=== PATIENT | female | born 2000 | race Caucasian/White ===

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

== ENCOUNTER 2022-01-24 12:03 | Emergency (ER) | payer OTHER, SELFPAY ==
--- NOTE | 2022-01-24 12:21 | ED_ITS ---
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 Tetanus is up-to-date. Hepatitis B shots UTD. Source patient is being contacted by brew house supervisor and consent is being obtained. Onset (ago): hour(s) Location: upper extremity Severity: mild Relieving factors: none Exacerbating factors: none Associated symptoms: Reports no associated symptoms Treatments prior to arrival: other (irrigation) Review of Systems General: Reports: 10 or more systems reviewed and unremarkable except in HPI and below PFSH ED PFSH: Medical History Acute appendicitis We will give the patient adult suppository of glycerin Once patient passes gas will advance to full liquid diet and potential discharge home today Assurance and education All questions have been answered and all concerns have been addressed to patient's satisfaction. No pertinent past medical history Social History Smoking and tobacco status: never smoked Female Reproductive History: Date of last menstrual period: 11/02/20 Physical Exam Const: COMMON NORMALS: no acute distress, no limitations, alert and well nourished GENERAL APPEARANCE: cooperative Extremity: COMMON NORMALS: normal to inspection and full ROM GENERAL: Yes normal exam except as noted OTHER: extremity small needle puncture ana to L dorsal hand Neuro: COMMON NORMALS: moves all extremities, no focal motor deficits and no sensory deficits noted SENSORIUM/ORIENTATION: Yes alert Course Vital Signs: Vital signs: Vital Signs Temperature 97.9 F 01/24/22 12:29 Pulse Rate 88 01/24/22 12:29 Respiratory Rate 16 01/24/22 12:29 Blood Pressure 127/83 01/24/22 12:29 Pulse Oximetry 97 01/24/22 12:29 [facility] - General Adult Medical Decision Making Patient will have employee exposure labs drawn. Tetanus is up-to-date. Source patient consent being obtained. Patient will hold off on HIV PEP until these results return. Recommend follow-up with Worker's Comp. as directed. Patient does not need alcohol/drug testing. Needlestick paperwork should have been completed by RN prior to discharge. Discharge Plan Discharge Patient Disposition: Home Clinical Impression: Needle stick injury Condition: Stable Prescriptions: No Action desogestrel-ethinyl estradiol [Isibloom] 0.15-0.03 mg tablet 1 tab PO DAILY 0RF Decadron 6 mg tablet 6 mg PO DAILY Qty: 7 0RF Discharge Orders: Discharge ED (Routine); Ordered 01/24/22 Ordered By: Aurelia Woo Referrals: Brett Elizondo MD [Primary Care Provider] - Activity Restrictions/Additional Instructions: As we discussed please follow-up with Worker's Comp. as instructed. Coding Level of Care Code ED Windows Migration Technician for Buzz Mcneill
[2022-01-24 12:29] VITALS: BP 127/83; PULSE 88; RESP 16; TEMP 36.6; O2SAT 97; BMI 33.3
[2022-01-24 14:05] LABS: Hepatitis B Surface AB 3.6 (11.5-1000); Hepatitis B Surface Antigen Non-Reactive (Nonreactive); Hepatitis C Virus Antibody Non-Reactive (Nonreactive)
[2022-01-24 14:23] LABS: HIV 1 & 2 Antibody Non-Reactive (Non-Reactiv); HIV 1 & 2 Antigen Non-Reactive (Non-Reactiv)
== END 2022-01-24 12:32 | disposition home or self-care (01) ==
PROVIDERS: Emergency Provider Physician Assistant; PCP Family Medicine
DX: S61.432A Puncture wound without foreign body of left hand, initial encounter (principal); W46.1XXA Contact with contaminated hypodermic needle, initial encounter; Y92.239 Unspecified place in hospital as the place of occurrence of the external cause; Y99.0 Civilian activity done for income or pay
CPT/HCPCS: 86706; 86803; 87340; 87806; 99283

== ENCOUNTER 2022-02-15 22:52 | Emergency (ER) | payer OTHER, MEDICAID, SELFPAY ==
--- NOTE | 2022-02-15 22:55 | XRR_ITS ---
PROCEDURE INFORMATION: Exam: XR Chest Exam date and time: 02/15/2022 11:03 PM Age: 21 years old Clinical indication: Cough and shortness of breath; Patient HX: Cough with SOB. ; Additional info: Covid TECHNIQUE: Imaging protocol: Radiologic exam of the chest. Views: 1 view. COMPARISON: CR XR chest 1V portable [id number] 07/30/2021 5:18 AM FINDINGS: Lungs: Unremarkable. No consolidation. Pleural spaces: Unremarkable. No pleural effusion. No pneumothorax. Heart/Mediastinum: Unremarkable. No cardiomegaly. Bones/joints: Unremarkable. XR/XR chest 1V portable [id number] IMPRESSION: No acute findings.
--- NOTE | 2022-02-15 22:55 | ECG_ITS ---
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 Measurements Intervals [place] Rate: 95 P: 39 [place]: 121 QRS: 53 QRSD: 85 T: 18 QT: 337 QTc: 425 Interpretive Statements SINUS RHYTHM WITH SINUS ARRHYTHMIA Compared to ECG 07/30/2021 05:13:47 Short [place] interval no longer present Electronically Signed On 02-16-2022 17:19:42 CDT by Sebastián Austin M.D. [email or web address] [email or web address] medical [email or web address].[email or web address]/[id number]
[2022-02-15 23:03] VITALS: BP 162/89; PULSE 108; RESP 24; TEMP 36.9; O2SAT 98; BMI 33.6
--- NOTE | 2022-02-15 23:07 | ED_ITS ---
HPI - Chest Pain General: Chief Complaint: Chest Pain Stated Complaint: Chest Pain/Cough/Dizzy Time Seen by Provider: 02/15/22 23:01 Source: patient Mode of arrival: ambulatory Limitations: no limitations History of Present Illness: 21-year-old female who states she been having cough congestion over the last 3 days states she seen 2 days ago diagnosed walk pneumonia placed on steroid albuterol along with antibiotic states she has had no improvement states her cough is dry in nature she had some slight dizziness and is having sharp chest pains. Denies any fever she is in no distress here denies any abdominal pain. Associated symptoms: Deny abdominal pain, nausea or vomiting Review of Systems Const: Reports: body aches Eyes: Denies: blurry vision or eye discomfort ENMT: Denies: throat pain or dental pain Card: Reports: chest pain Resp: Reports: non-productive cough GI: Denies: abdominal pain, nausea, vomiting or diarrhea : Denies: dysuria Musc: Denies: neck pain or back pain Skin/Breast: Denies: rash Neuro: Denies: headache(s) Psych: Denies: depression Jax/Lymph: Denies: easy bruising All/Imm: Denies: urticaria PFSH ED PFSH: Medical History Acute appendicitis We will give the patient adult suppository of glycerin Once patient passes gas will advance to full liquid diet and potential discharge home today Assurance and education All questions have been answered and all concerns have been addressed to patient's satisfaction. No pertinent past medical history Social History Smoking and tobacco status: never smoked Female Reproductive History: Date of last menstrual period: 01/25/22 Physical Exam Const: COMMON NORMALS: no acute distress, patient oriented x3 and healthy a ppearing HENMT: COMMON NORMALS: normocephalic and atraumatic HEAD & SCALP: normocephalic and atraumatic Eye: COMMON NORMALS: Equal, round and reactive pupils present and EOMs intact bilaterally PUPIL: Yes Equal, round and reactive pupils present Neck/C-Spine: COMMON NORMALS: full ROM and supple Chest: COMMONS NORMALS: normal inspection of the chest and normal palpation of entire chest wall Resp: COMMON NORMALS: normal respiratory effort, No retractions, No use of accessory muscles and clear to auscultation bilaterally AUSCULTATION: clear to auscultation bilaterally Cardio: COMMON NORMALS: regular rate, regular rhythm and No murmurs present (Cardio) RATE: regular rate RHYTHM: regular rhythm GI: COMMON NORMALS: Normal to inspection, nondistended, normoactive bowel sounds present, Soft to palpation, non-tender and no masses PALPATION: Yes Soft to palpation Extremity: COMMON NORMALS: normal to inspection and full ROM Neuro: COMMON NORMALS: patient oriented x3, moves all extremities and no focal motor deficits Psych: COMMON NORMALS: mental status grossly normal, Normal thought process p resent and cooperative THOUGHT PROCESS: Normal thought process present Skin: COMMON NORMALS: no rashes or lesions noted and no wounds GENERAL SKIN EXAM: no rashes or lesions noted Course Vital Signs: Vital signs: Vital Signs Temperature 98.4 F 02/15/22 23:03 Pulse Rate 97 02/15/22 23:51 Respiratory Rate 17 02/15/22 23:51 Blood Pressure 139/80 02/15/22 23:37 Pulse Oximetry 98 02/15/22 23:51 Oxygen Delivery Me thod 02/15/22 23:51 MDM - Chest Pain Medical Decision Making Patient presents here with COVID likely causing her symptoms she is well- appearing here in no distress she is stable for discharge she is to follow-up with her PCP and return if worsening. Lab Data : 02/15/22 23:22 02/15/22 23:22 Laboratory Results WBC 12.7 10^3/uL (4.5-13.0) 02/15/22 23:22 RBC 4.83 10^6/uL (4.1-5.3) 02/15/22 23:22 Hgb 13.2 g/dL (11.5-15.3) 02/15/22 23:22 Hct 41.8 % (37.0-47.0) 02/15/22 23:22 MCV 86.5 fl (81-99) 02/15/22 23:22 MCH 27.3 pg (28.0-34.0) L 02/15/22 23:22 MCHC 31.6 g/dL (30.0-36.0) 02/15/22 23:22 RDW 13.5 % (12.1-15.1) 02/15/22 23:22 Plt Count 278 10^3/cmm (130-400) 02/15/22 23:22 MPV 11.8 fL (7.4-10.4) H 02/15/22 23:22 Neut % (Auto) 85.3 % 02/15/22 23:22 Lymph % (Auto) 9.4 % 02/15/22 23: Starr % (Auto) 4.7 % 02/15/22 23: Eos % (Auto) 0.0 % 02/15/22 23:22 Baso % (Auto) 0.1 % 02/15/22 23: Neut # (Auto) 10.85 10^3/uL (1.8-8.0) H 02/15/22 23: Lymph # (Auto) 1.2 10^3/uL (1.5-6.5) L 02/15/22 23: Starr # (Auto) 0.6 10^3/uL (0.2-0.9) 02/15/22 23:22 Eos # (Auto) 0.0 10^3/uL (0.0-0.8) 02/15/22 23: Baso # (Auto) 0.0 10^3/uL (0.0-0.1) 02/15/22 23: Nucleated RBC % (auto) 0 % 02/15/22 23: Nucleated RBCs # 0.0 /100WBC 02/15/22 23:22 D-Dimer <= 0.27 ug/mIFEU (0-0.59) 02/15/22 23:22 Sodium 142 mmol/L (136-145) 02/15/22 23:22 Potassium 4.1 mmol/L (3.5-5.1) 02/15/22 23:22 Chloride 106 mmol/L (98-107) 02/15/22 23:22 Carbon Dioxide 23 mmol/L (22-29) 02/15/22 23:22 Anion Gap 17.1 (5-19) 02/15/22 23:22 BUN 15 mg/dL (6-20) 02/15/22 23:22 Creatinine 0.8 mg/dL (0.5-0.9) 02/15/22 23:22 GFR Calculation 92.4 mL/min (90-130) 02/15/22 23:22 Glucose 134 mg/dL (65-115) H 02/15/22 23:22 Calculated Osmolality 297 mOsm/kg (285-295) H 02/15/22 23:22 Calcium 9.2 mg/dL (8.5-10.5) 02/15/22 23:22 Total Bilirubin 0.2 mg/dL (0.15-1.2) 02/15/22 23:22 AST 10 U/L (0-32) 02/15/22 23:22 ALT 12 U/L (0-33) 02/15/22 23:22 Alkaline Phosphatase 58 U/L (35-105) 02/15/22 23:22 Total Protein 7.7 g/dL (6.6-8.7) 02/15/22 23:22 Albumin 3.9 g/dL (3.5-5.2) 02/15/22 23:22 Globulin 3.8 g/dL (1.3-4.6) 02/15/22 23:22 HCG, Qual Negative (Negative) 02/15/22 23:22 SARS-CoV-2 Ag (Rapid) Positive (Negative) H 02/15/22 23:22 EKG Data EKG 1: I personally reviewed and interpreted this EKG as follows: EKG interpretation date: 02/15/22 EKG interpretation time: 23:05 Interpretation: nsr hr [address] or t wave abnormalities qrs 85 qtc 390 Discharge Plan Discharge Patient Disposition: Home Clinical Impression: COVID-19 Condition: Stable Prescriptions: No Action desogestrel-ethinyl estradiol [Isibloom] 0.15-0.03 mg tablet 1 tab PO DAILY albuterol sulfate 90 mcg/actuation HFA aerosol inhaler 2 puff inhalation Q6H PRN doxycycline hyclate 100 mg tablet 100 mg PO BID 10 Days Qty: 20 0RF Decadron 6 mg tablet 6 mg PO DAILY Qty: 7 0RF Discharge Orders: Discharge ED (Routine); Ordered 02/15/22 Ordered By: Mahnaz Dunne Referrals: Brett Elizondo MD [Primary Care Provider] - 1-3 days Discharge Diet: Advance as tolerated Discharge Activity: Resume usual activity Patient Instructions: COVID-19 (Coronavirus Disease 2019) (ED) Coding Level of Care Code ED 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
[2022-02-15 23:28] LABS: Basophils % 0.1 %; Hematocrit 41.8 % (37.0-47.0); Hemoglobin 13.2 g/dL (11.5-15.3); Lymphocytes # 1.2 10^3/uL (1.5-6.5); Lymphocytes % 9.4 %; Mean Corpuscular HGB Conc 31.6 g/dL (30.0-36.0); Mean Corpuscular Hemoglobin 27.3 pg (28.0-34.0); Mean Corpuscular Volume 86.5 fl (81-99); Mean Platelet Volume 11.8 fL (7.4-10.4); Monocytes # 0.6 10^3/uL (0.2-0.9); Monocytes % 4.7 %; Neutrophils # 10.85 10^3/uL (1.8-8.0); Neutrophils % 85.3 %; Nucleated Red Blood Cells % 0 %; Platelet Count 278 10^3/cmm (130-400); Red Blood Count 4.83 10^6/uL (4.1-5.3); Red Cell Distribution Width 13.5 % (12.1-15.1); White Blood Count 12.7 10^3/uL (4.5-13.0)
[2022-02-15 23:37] VITALS: BP 139/80; PULSE 119; RESP 18; O2SAT 97
[2022-02-15] MEDS: sodium chloride 0.9% 1,000 ML 999 ML IV (23:40)
[2022-02-15 23:41] LABS: D Dimer <= 0.27 ug/mIFEU (0-0.59)
[2022-02-15 23:44] LABS: HCG, Serum Qual Negative (Negative)
[2022-02-15 23:46] LABS: Alanine Aminotransferase 12 U/L (0-33); Albumin Level 3.9 g/dL (3.5-5.2); Alkaline Phosphatase 58 U/L (35-105); Anion Gap 17.1 (5-19); Aspartate Amino Transferase 10 U/L (0-32); Blood Urea Nitrogen 15 mg/dL (6-20); Calcium 9.2 mg/dL (8.5-10.5); Carbon Dioxide 23 mmol/L (22-29); Chloride 106 mmol/L (98-107); Globulin 3.8 g/dL (1.3-4.6); Glomerular Filtration Rate 92.4 mL/min (90-130); Glucose 134 mg/dL (65-115); Osmolality Calculated 297 mOsm/kg (285-295); Potassium 4.1 mmol/L (3.5-5.1); Sodium 142 mmol/L (136-145); Total Bilirubin 0.2 mg/dL (0.15-1.2); Total Protein 7.7 g/dL (6.6-8.7)
[2022-02-15 23:48] LABS: SARS Covid-2 Antigen Positive (Negative)
[2022-02-15] MEDS: ipratropium-albuterol 3 mL Neb INHALATION (23:50)
[2022-02-15 23:51] VITALS: PULSE 97; RESP 17; O2SAT 98
[2022-02-16 00:11] VITALS: PULSE 97; RESP 17; O2SAT 98
== END 2022-02-16 00:13 | disposition home or self-care (01) ==
PROVIDERS: Emergency Provider Emergency Medicine; PCP Family Medicine
DX: U07.1 COVID-19 (principal)
CPT/HCPCS: 71045; 80053; 84703; 85025; 85378; 87426; 93005; 94640; 96360; 99284; J7030

== ENCOUNTER → 2022-03-31 11:34 | Outpatient (BNVA) | payer OTHER, MEDICAID, SELFPAY | PROVIDERS: Visit Provider Nurse Practitioner Women's Health | DX: N89.8 Other specified noninflammatory disorders of vagina (principal); N76.0 Acute vaginitis; B96.89 Other specified bacterial agents as the cause of diseases classified elsewhere; Z11.3 Encounter for screening for infections with a predominantly sexual mode of transmission | CPT/HCPCS: 87491; 87591; 87661 ==

== ENCOUNTER 2022-06-01 15:36 | Outpatient (CLI) | payer OTHER, MEDICAID, SELFPAY | END 2022-06-01 15:37 | disposition home or self-care (01) | LOC: SPT 15:37 | PROVIDERS: Visit Provider Student in an Organized Health Care Education/Training Program | DX: Z46.89 Encounter for fitting and adjustment of other specified devices (principal); S83.201D Bucket-handle tear of unspecified meniscus, current injury, left knee, subsequent encounter; X58.XXXD Exposure to other specified factors, subsequent encounter | CPT/HCPCS: 97760; L1832 ==

== ENCOUNTER 2022-06-21 09:08 | Outpatient (CLI) | payer OTHER, MEDICAID, SELFPAY ==
--- NOTE | 2022-06-21 09:30 | MR_ITS ---
WS: [id number] MRI RIGHT KNEE NONCONTRAST TECHNIQUE: Axial PD, coronal PD fat sat, coronal PD, sagittal PD, and sagittal PD fat-sat images obta ined. CLINICAL INFORMATION: knee pain COMPARISON: None. FINDINGS: Distal quadriceps and patella tendons are intact. Normal ACL and PCL. Medial and lateral meniscus are normal in appearance. No acute appearing meniscal tears. Normal medial and lateral collateral ligame nts. Normal popliteus. Normal bone marrow signal in the femoral condyles and tibial plateau. Normal popliteal fossa. Mild ch ondromalacia patella. No subchondral edema. Normal medial and lateral patellar retinaculum. MR/MR knee RT wo con* [id number] IMPRESSION: 1. Normal ACL and PCL. 2. Normal medial and lateral meniscus. No acute meniscal tears. 3. Medial and lateral collateral ligaments are normal in appearance. 4. Mild chondromalacia patella. 5. No other suspicious findings. Outbridge grading: grade II: blister-like swelling/fraying of articular cartila ge extending to surface
== END 2022-06-21 09:09 | disposition home or self-care (01) ==
LOC: RAD 09:09
PROVIDERS: Visit Provider Student in an Organized Health Care Education/Training Program
DX: M22.41 Chondromalacia patellae, right knee (principal)
CPT/HCPCS: 73721

== ENCOUNTER 2022-07-15 12:44 | Emergency (ER) | payer OTHER, MEDICAID, SELFPAY ==
[2022-07-15 12:48] VITALS: BP 147/89; PULSE 91; RESP 16; TEMP 36.1; O2SAT 99
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
[2022-07-15] MEDS: acetaminophen 500 mg Tablet 1000 MG PO (14:30)
[2022-07-15 14:51] VITALS: BP 130/83; PULSE 77; RESP 16; O2SAT 96
== END 2022-07-15 14:53 | disposition home or self-care (01) ==
PROVIDERS: Emergency Provider Physician Assistant
DX: S06.0X0A Concussion without loss of consciousness, initial encounter (principal); Y04.2XXA Assault by strike against or bumped into by another person, initial encounter
CPT/HCPCS: 70450; 99284

== ENCOUNTER 2022-08-30 17:25 | Emergency (ER) | payer OTHER, MEDICAID, SELFPAY ==
[2022-08-30 17:35] VITALS: BP 144/97; PULSE 88; RESP 20; TEMP 36.7; O2SAT 97; BMI 37.8
--- NOTE | 2022-08-30 17:43 | XRR_ITS ---
PROCEDURE INFORMATION: Exam: XR Chest Exam date and time: 08/30/2022 7:05 PM Age: 21 years old Clinical indication: Cough and fever and other: Difficulty breathing chest pressure TECHNIQUE: Imaging protocol: Radiologic exam of the chest. Views: 1 view. COMPARISON: CR XR chest 1V portable [id number] 02/15/2022 11:03 PM FINDINGS: Lungs: Lungs are clear bilaterally. Pleural spaces: No pleural effusion. No pneumothorax. Heart/Mediastinum: The cardiac silhouette and mediastinal contours are unremarkable. Bones/joints: Unremarkable for age. XR/XR chest 1V portable [id number] IMPRESSION: Negative chest radiograph.
[2022-08-30 18:58] VITALS: O2SAT 96
--- NOTE | 2022-08-30 19:06 | ED_ITS ---
HPI - COVID General: Chief Complaint: COVID symptoms Stated Complaint: congestion/cough/fever Time Seen by Provider: 08/30/22 19:06 History of Present Illness: Patient comes in today for complaints of cough and some nasal drainage. On exam patient appears nontoxic. Patient appears in no severe pain. Respirations are even. Patient does report some midsternal chest discomfort with respirations. COVID 19 common symptoms: positive throat pain; negative fever(s), dyspnea, nausea or vomiting COVID 19 other sytmptoms: negative chest pain COVID Results: SARS-CoV-2 Antigen (Rapid) negative (Negative) 08/30/22 19:00 SARS-CoV-2 RNA (RT-PCR) Detected (NOT DETECTED) A 07/16/21 21: 10 Nasal/Oral Coronavirus 2019 PCR Not detected 03/09/21 01:20 Review of Systems Const: Denies: fever(s) ENMT: Reports: throat pain and nasal discharge Card: Denies: chest pain Resp: Denies: dyspnea GI: Denies: nausea or vomiting Skin/Breast: Denies: rash PFSH ED PFSH: Medical History Loose body in knee No pertinent past medical history neghx: htn,dm,thyroid,dvt/pe PCP: Dr. Elizondo Patella-femoral syndrome Tear meniscus knee Surgical History History of placement of ear tubes x2 as a child History of tonsillectomy as a child Hx of appendectomy (~10/2020) Hx of wisdom tooth extraction (~2018) Family History Grandmother Diabetes Paternal Grandfather Diabetes Paternal Mother Hypertension Denies family history of Colon cancer Ovarian cancer Heart disease Hypercholesteremia Breast cancer Uterine cancer Thyroid disease Stroke Social History Smoking and tobacco status: never smoked Physical Exam Const: COMMON NORMALS: alert HENMT: NOSE: Nasal discharge present THROAT: posterior oropharynx abnormal erythema Neck/C-Spine: COMMON NORMALS: full ROM Resp: COMMON NORMALS: normal respiratory effort and clear to auscultation bilaterally AUSCULTATION: clear to auscultation bilaterally Cardio: COMMON NORMALS: regular rate and regular rhythm RATE: regular rate RHYTHM: regular rhythm Back/Pelvis: COMMON NORMALS: thoracic and lumbar spine normal to inspection Extremity: COMMON NORMALS: no pedal edema Neuro: SENSORIUM/ORIENTATION: Yes alert Skin: COMMON NORMALS: turgor normal GENERAL SKIN EXAM: turgor normal Course Vital Signs: Vital signs: Vital Signs Temperature 98.0 F 08/30/22 17:35 Pulse Rate 88 08/30/22 17:35 Respiratory Rate 20 H 08/30/22 17:35 Blood Pressure 144/97 08/30/22 17:35 Pulse Oximetry 96 08/30/22 18:58 Oxygen Delivery Me thod 08/30/22 18:58 MDM - COVID Medical Decision Making 21-year-old female comes in today for complaints of some throat discomfort, nasal discharge, and sternal chest discomfort with deep inspiration. Patient appears nontoxic. Respirations are even lungs are clear to auscultation. No edema is noted in the extremities. Patient moves all extremities well. Some postnasal drainage is noted. Bilateral TMs are clear. Vital signs are normal except for some mild elevation of blood pressure. Differential diagnosis includes but not limited to pneumonia, upper respiratory infection, bronchitis, viral syndrome. Chest x-ray was unremarkable. COVID and influenza test were negative. Believe the patient probably has a mild upper respiratory infection secondary to viral syndrome. Reviewed exam with patient with recommendations for treatment and follow-up. Patient reported understanding and agreed to plan. Lab Data Laboratory Results Influenza Type A Ag negative (Negative) 08/30/22 19:00 Influenza Type B Ag negative (Negative) 08/30/22 19:00 SARS-CoV-2 Ag (Rapid) negative (Negative) 08/30/22 19:00 SARS-CoV-2 Antigen (Rapid) negative (Negative) 08/30/22 19:00 SARS-CoV-2 RNA (RT-PCR) Detected (NOT DETECTED) A 07/16/21 21: 10 Nasal/Oral Coronavirus 2019 PCR Not detected 03/09/21 01:20 Discharge Plan Discharge Patient Disposition: Home Clinical Impression: Upper respiratory infection Qualifiers: URI type: unspecified URI Qualified Code(s): J06.9 - Acute upper respiratory infection, unspecified Condition: Stable Prescriptions: No Action desogestrel-ethinyl estradiol [Isibloom] 0.15-0.03 mg tablet 1 tab PO DAILY metronidazole 500 mg tablet 500 mg PO BID 7 Days Qty: 14 0RF albuterol sulfate 90 mcg/actuation HFA aerosol inhaler 2 puff inhalation Q6H PRN (DME) Jocelyn hinged knee brace See Rx Instructions .Route .MEDSUPPLY Qty: 1 0RF Rx Instructions: As directed Discharge Orders: Discharge ED (Routine); Ordered 08/30/22 Ordered By: Andrew Benitez Referrals: Brett Elizondo MD [Primary Care Provider] - Patient Instructions: Opioid Safety, Pain Management Activity Restrictions/Additional Instructions: Home and rest. Drink plenty of fluids. Use acetaminophen and ibuprofen for pain and discomfort. Activity as tolerated. Follow-up with primary care in 2 to 3 days for recheck. Return to the ER for worsening symptoms such as inc reased shortness of breath, severe chest pain, inability to hold fluids down, or new concerns. Stand Alone Forms: Work/School Release Coding Level of Care Code ED School Psychology Specialist for Buzz Mcneill
[2022-08-30 19:28] LABS: Influenza A by IFA negative (Negative); Influenza B by IFA negative (Negative); SARS Covid-2 Antigen negative (Negative)
== END 2022-08-30 19:56 | disposition home or self-care (01) ==
PROVIDERS: Emergency Medicine; Emergency Provider Nurse Practitioner Family; PCP Family Medicine
DX: J06.9 Acute upper respiratory infection, unspecified (principal)
CPT/HCPCS: 71045; 87426; 87804; 99284

== ENCOUNTER 2022-12-01 15:02 | Outpatient (RCR) | payer OTHER, MEDICAID, SELFPAY | END 2022-12-30 23:59 | disposition home or self-care (01) | LOC: SPT 15:02 | PROVIDERS: Visit Provider Student in an Organized Health Care Education/Training Program | DX: M25.561 Pain in right knee (principal) | CPT/HCPCS: 97032; 97110; 97161 ==

== ENCOUNTER 2022-12-23 09:01 | Outpatient (CLI) | payer OTHER, MEDICAID, SELFPAY ==
--- NOTE | 2022-12-23 09:30 | MR_ITS ---
WS: [id number] MRI RIGHT KNEE HISTORY: pain, pain for one year. COMPARISON: 06/21/2022 Anterior cruciate ligament: Intact. Posterior cruciate ligament: Intact. Medial collateral ligament: Intact. Posterior lateral corner structures: Intact. Medial menisci: There is a very tiny focal defect seen in the junction of the mid body with the poste rior horn. This could represent a very small radial tear. This is seen only on 2 sequential images. N ot definitely seen on the prior study. Lateral meniscus: Intact. Normal signal, size and shape. Extensor mechanism: Distal quadriceps tendon and patellar tendons are intact. Fluid and soft tissue: No joint effusion. No Pickett's cyst. Osseous and articular structures: Patellofemoral compartment: Normal. Medial compartment: Normal. Lateral compartment: Normal. MR/MR knee RT wo con* [id number] IMPRESSION: 1. Very tiny focal defect involving the junction of the body and free edge pos terior medial meniscus. This could potentially represent a very small radial te ar. Seen only on 2 sequential images. 2. Otherwise normal. No chondromalacia identified on today's study.
== END 2022-12-23 09:02 | disposition home or self-care (01) ==
PROVIDERS: Visit Provider Student in an Organized Health Care Education/Training Program
DX: M22.2X1 Patellofemoral disorders, right knee (principal)
CPT/HCPCS: 73721

== ENCOUNTER 2023-01-06 07:11 | Day surgery (SDC) | payer OTHER, MEDICAID, SELFPAY ==
[2023-01-05 08:07] VITALS: BMI 38.4
[2023-01-06] VITALS (21 sets, daily range): BP systolic 102–159; BP diastolic 52–112; PULSE 1–148; RESP 14–44; TEMP 36.2–36.9; O2SAT 93–99
[2023-01-06] MEDS: sodium chloride 0.9% 1,000 ML 30 ML IV (07:39)
[2023-01-06] MEDS: ketorolac 30 mg/mL INJ IVP (07:41)
[2023-01-06] MEDS: acetaminophen 1,000 MG/100 ML PIGGYBACK 400 MG IV (07:41)
--- NOTE | 2023-01-06 08:58 | W.PM.OPSUD ---
Surgery/Procedure H&P Update DATE OF PROCEDURE: January 06, 2023 DATE H&P PERFORMED: 12/26/22 CHANGES TO PREVIOUS DOCUMENTATION: None. No change in HPI from previous office visit on 12/26/2022. Patient understands risk benefits complication alternatives with surgery and elects proceed with right knee diagnostic and surgical arthroscopy with partial medial meniscectomy versus repair. All questions answered. PREOP DIAGNOSIS: right knee medial meniscus tear PRIMARY INDICATION FOR PROCEDURE: Right knee medial meniscus tear PLANNED PROCEDURE: Operation Date: 01/06/23 09:25 Proposed Procedures p Right Knee Diagnostic and Surgical Arthroscopy with Partial Medial Meniscectomy [id number],S83.209A,M22.2X9,M25.561,M23.40(Right) - Cam Rojas DO
[2023-01-06] MEDS: ceFAZolin 2,000 MG in sodium chloride 0.9% (plus) 50 ML 100 MG IV (09:14)
--- NOTE | 2023-01-06 09:33 | ANES.PREANE2 ---
Pre-Anesthetic Assessment Height/Weight: Height 1.63 m Weight 101.605 kg Temp Pulse Resp BP Pulse Ox O2 Del Method 98.5 F 88 16 148/79 97 Room Air 01/06/23 07:34 01/06/23 07:34 01/06/23 07:34 01/06/23 07:34 01/06/23 07:34 01/06/23 07:34 Preop Diagnosis: right knee medial meniscus tear Operation Date: 01/06/23 09:25 Proposed Procedures p Right Knee Diagnostic and Surgical Arthroscopy with Partial Medial Meniscectomy 07814,S83.209A,M22.2X9,M25.561,M23.40(Right) - Cam Rojas DO Familial anesthetic complications: none Was Beta [place] taken within 24 hours: N/A Was Clonidine taken within 24 hours: N/A Last intake: Intake Last Liquid Date 01/05/23 Last Liquid Time 23:00 Last Solid Date 01/05/23 Last Solid Time 18:30 Social No alcohol and No tobacco Exam alert, oriented x 3, clear to auscultation bilaterally and regular rate & rhythm Airway Submandibular: within normal limits Cervical ROM: within normal limits Mallampati: Class II Dentition: full Pulmonary Asthma Metabolic Morbid Obesity Anesthetic Plan ASA status: 2 Anesthesia: General and Regional (specify below) (Right adductor blk) Medications/Allergies Home Medications Medication Instructions Recorded Confirmed Last Taken Type desogestrel 0.15 mg-ethinyl 1 tab PO DAILY 08/10/20 01/05/23 01/06/23 History estradiol 0.03 mg tablet (Isibloom) albuterol sulfate 90 mcg/actuation 2 puff inhalation Q6H PRN Pain 02/14/22 01/05/23 Unknown History aerosol inhaler mecobalamin (vitamin B12) 5,000 mcg PO 09/12/22 12/26/22 01/05/23 History mcg disintegrating tablet acetaminophen 325 mg tablet 325 mg PO QID PRN Pain 01/05/23 01/06/23 01/03/23 History (Tylenol) ibuprofen 800 mg tablet 800 mg PO Q6H PRN Pain 01/05/23 01/05/23 Unknown History Allergies Allergy/AdvReac Type Severity Reaction Status Date / Time tramadol Allergy ADR-Headach Verified 01/06/23 08:12 e Current Medications Generic Name Dose Route Start Last Admin Trade Name Freq PRN Reason Stop Dose Admin Sodium Chloride 1,000 mls @ 30 mls/hr 01/06/23 07:15 01/06/23 07:39 Sodium Chloride 0.9% IV 01/07/23 07:14 30 mls/hr .Q24H LUIS Administration PFSH Anesthesia Medical History Loose body in knee No pertinent past medical history neghx: htn,dm,thyroid,dvt/pe PCP: Dr. Elizondo Patella-femoral syndrome Tear meniscus knee Surgical History History of placement of ear tubes x2 as a child History of tonsillectomy as a child Hx of appendectomy (~10/2020) Hx of wisdom tooth extraction (~2018) Family History Grandmother Diabetes Paternal Grandfather Diabetes Paternal Mother Hypertension Denies family history of Colon cancer Ovarian cancer Heart disease Hypercholesteremia Breast cancer Uterine cancer Thyroid disease Stroke Social History Smoking and tobacco status: never smoked Data Anesthesia Cardiac Studies: No Data to Display
--- NOTE | 2023-01-06 09:43 | ANES.PROC ---
Anesthesia Procedures Procedure/Date: 01/06/23 adductor, genicular nerve blocks Nerve Block ^: Nerve Block 1: Main Anesthesia: general anesthesia Time Out Performed: Yes Consent: requested by attending/covering physician, risks and benefits reviewed and patient agrees to proceed Nerve block location: adductor canal and other (geniculars) Anesthesia monitors applied: pulse oximetry, EKG, BP cuff and oxygen Nerve block position: supine Anesthetic Used: ropivicaine 0.5% Amount of anesthesia used (mL): 30 Ultrasound used to: recognize landmarks and visualize and ID femerol nerve Nerve Stimulator Used?: No Interscalene/Femoral BLK: 4 stimuplex 21 g needle used for position and inplane approach, visualize local anesthetic spread and no vascular puncture identified Injection: neg aspiration of heme Patient Tolerated Procedure: well and no complications Complications: none Additional Comments: ultrasound image on chart
[2023-01-06] MEDS: lidocaine-epi 2% 20 mL INJ INJECTION ×3 (09:44→09:55)
--- NOTE | 2023-01-06 10:02 | PM.OP2 ---
Brief Operative Note Date of procedure: 01/06/23 Pre-op diagnosis: Right knee medial meniscus tear Post-op diagnosis: other (Right knee medial plica and extensive synovitis) Procedure Done: Right knee diagnostic and surgical arthroscopy with medial plica excision Right knee diagnostic and surgical arthroscopy with extensive synovectomy of medial lateral and patellofemoral compartments Surgeon: Cam Rojas Estimated blood loss (mL): 2 Complications: None Post-op Plan: Patient taken to PACU in stable condition recovering well pain controlled. Will receive appropriate discharge instructions as well as pain medication postoperatively. Aspirin for DVT prophylaxis. Follow-up in the orthopedic office in 2 weeks. May weight-bear as tolerated. Encourage knee range of motion. Condition: stable Disposition: same day Coding Level of Care Code Acute Code for Buzz Mcneill
--- NOTE | 2023-01-06 10:04 | PM.PACU ---
PACU note Narrative: Patient taken back in stable condition recovering well pain controlled. Dressing on in place clean dry and intact. Patient able to wiggle toes plantarflex and dorsiflex ankle. Distal pulses are palpable toes warm well perfused. Patient did receive abductor block. Exam: awake Disposition: discharged
--- NOTE | 2023-01-06 10:05 | PM.OP ---
Operative Report Date of procedure: January 06, 2023 Pre-op diagnosis: Preop Diagnosis right knee medial meniscus tear Procedure: Post-op diagnosis: Right knee medial Plica Right knee extensive synovitis Procedure done: Right knee diagnostic and surgical arthroscopy with medial plica excision Right knee diagnostic and surgical arthroscopy with extensive synovectomy of medial lateral and patellofemoral compartments Surgeon: Cam Rojas DO Estimated blood loss: 2mL Tourniquet: No tourniquet was used IV fluids: See anesthesia record Complications: None Findings: See operative report narrative Condition: stable Disposition: same day Brief History: Patient is a 22-year-old female with right knee pain.? Patient has failed conservative treatment who has been worked up for right? knee pain in the outpatient setting. MRI findings consistent with tear of the medial meniscus. talked in the office about treatment options patient would like to proceed with a right knee diagnostic and surgical arthroscopy.? Patient understand the ins and outs of the procedure the risk benefits complication alternatives to treatment options.? Understanding risk of surgery they agree to proceed with surgical intervention.?? Understanding this and patient agree to proceed with surgical intervention all questions answered. Procedure: Patient seen and evaluated in the preoperative holding area.? Consent was reviewed and signed with patient.? Correct extremity was then marked.? Patient seen evaluated Anesthesia Department once cleared for surgery patient was taken back to the operative suite.? Patient was transported onto the OR table in supine position.? All bony prominences well-padded patient was appropriate secured to the bed.? Once appropriately anesthetized a nonsterile tourniquet was applied to the right thigh.? The right lower extremity was then prepped and draped in standard orthopedic fashion.? Final timeout performed.? Patient received appropriate preoperative antibiotics. Patient received local anesthetic of lidocaine with epinephrine into the joint as well as around the portal sites under sterile aseptic technique. No tourniquet was inflated A standard 2 portal vertical incision diagnostic and surgical arthroscopy of the right knee was performed in standard fashion.? Small stab incision made in the inferolateral portal introduced trocar and arthroscope into the suprapatellar pouch.? Suprapatellar pouch was subsequently visualized and found to have significant synovitis but no loose bodies.? Patient had noticeable significant inflamed infrapatellar fat pad and thickening hypertrophic within the patellofemoral compartment.? A significantly inflamed medial plica was noted and the knee range of motion snapping was appreciated. ?The medial gutter was free of loose bodies I then introduced the arthroscope into the medial compartment.? Within the medial compartment I then established my inferior medial working portal utilizing spinal needle outside in technique.? Once established I then visualized our articular cartilage of the medial compartment with a valgus stress.? 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 Next I inspected the meniscus.? With an arthroscopic probe was utilized to visual? all aspects of the meniscus.? Meniscal root was found to be intact.? Meniscus was found to be intact with no tear. Next a introduced the arthroscope to the intercondylar notch.? PCL and ACL were intact. patient had significant thickening of the infrapatellar fat pad spanning into the medial and lateral compartments.? I then performed an extensive synovectomy with the arthroscopic shaver of the patellofemoral medial and lateral compartments as well as the intercondylar notch. Advance the scope into the retrocruciate space and no loose bodies were found. Next I introduced the arthroscope into the lateral compartment the lateral compartment was found to have grade 0 chondromalacia.? Lateral meniscus was found to be intact.? The root was intact.? This completed my work of the lateral compartment and then performed a synovectomy of the lateral compartment.? Next of the arthroscope was placed into the lateral gutter and this was free of loose bodies.? Finally I reintroduced the arthroscope into the patellofemoral compartment.? The patellofemoral was found to have grade 0 chondromalacia of the patellofemoral compartment.? At this point I utilized arthroscopic shaver as well as thermal wand to perform extensive synovectomy of the patellofemoral compartment. At this point time it was determined I suspect patient's pain was all stemming from medial plica given the inflammation and band along the medial femoral condyle. As result utilized arthroscopic shaver and thermal wand to perform medial plica excision to excise this to its entirety patient no longer had any snapping and no residual band was noted. I then switch my portal sites to the medial working portal.? Completed the rest of my synovectomy and the rest of my examination arthroscopy was normal. All fluid was suctioned from the joint.? ?All instruments were withdrawn.? Portal sites were closed with interrupted nylon suture.? portal sites were then covered with with Xeroform 4 x 4's ABD Curlex and Jacobo wrap.? Patient was then subsequently awakened from anesthesia and taken to PACU in stable condition. Disposition: Patient taken to PACU in stable condition recovering well.? Will receive appropriate discharge structure as well as pain medication postoperatively as well as? DVT prophylaxis.we will have patient follow-up with us in the office in 2 weeks.? We will weightbearing as tolerated to the right lower extremity.? Patient understands and agrees with current plan.? All questions answered.
[2023-01-06] MEDS: meperidine 50 mg/mL INJ 12.5 MG IVP (10:19)
[2023-01-06] MEDS: midazolam 1 mg/mL INJ 2 mL 2 MG IVP (10:32)
--- NOTE | 2023-01-06 11:48 | SUR.PHASEI ---
1015 - 1125 Pt began to have jerking movements of all 4 extremeties and moving head from side to side. is able to tell this nurse her name and birthday. Pts verbal response was slow and pushed. Liza DUBOIS to bedside to assess patient. Liza stayed with patient for a period of time ( approx 5 minutes) and then left to get Dr Rangel. Dr Rangel to bedside. Dr Rangel wanted additional 37.5 of Demerol given. Nurse gave the Demerol. Dr Rangel also ordered 0.5 mg Versed. Pt cont to have involuntary movements of all extremities but cont to be able to answer questions slowly. Dr Rangel gave propofol and pt ceased to have to jerking movements. Pt slept for approximately 20 minutes. When pt awake she was alert and oriented x 3. Stated Im ok . Pt smiling and pleasant. Dr Rangel asked pt if she had any recollection of the jerking movements and she reported that she did not. Report given to Dianelys RODRIGUEZ and taken to room 11 in [facility]PS.
--- NOTE | 2023-01-06 13:47 | ANE.PACU2 ---
Inpatient post-anesthesia follow up: Airway intact: Yes Vital signs: Temperature 97.1 F Pulse Rate 84 Respiratory Rate 16 Blood Pressure 126/66 Pulse Oximetry 94 Oxygen Delivery Me thod Room Air Oxygen Flow Rate 3 Fraction of Inspir ed Oxygen Hydration adequate: Yes Nausea and vomiting: No Pain level: 2 Mental status: Baseline Additional Comments: Patient had unusual postop rxn, she exhibited seizure-like (head turning and hand flapping/shaking) activity but was able to follow commands (tachy and HTN as well)--?pseudoseizure, ?central anticholinergic syn. Given Versed--no help, reversal for Versed--no help, droperidol 0.625mg--no help...finally bolused 50mg of Prop and she awoke quickly asking if the surgery went well.
== END 2023-01-06 12:10 | disposition home or self-care (01) ==
PROVIDERS: PCP Family Medicine; Visit Provider Student in an Organized Health Care Education/Training Program
PROC: (CPT 29870; principal; 2023-01-06 09:25)
DX: S83.8X1A Sprain of other specified parts of right knee, initial encounter; X58.XXXA Exposure to other specified factors, initial encounter; M22.2X1 Patellofemoral disorders, right knee; J45.909 Unspecified asthma, uncomplicated; E66.01 Morbid (severe) obesity due to excess calories; Z68.38 Body mass index [BMI] 38.0-38.9, adult
CPT/HCPCS: 29876; J0131; J0690; J1100; J1790; J1885; J2175; J2250; J2405; J2704; J2795; J3010; J7030

== ENCOUNTER 2023-02-09 06:00 | Outpatient (RCR) | payer OTHER, MEDICAID, SELFPAY | END 2023-03-02 23:59 | disposition home or self-care (01) | LOC: SPT 06:00 | PROVIDERS: Visit Provider Student in an Organized Health Care Education/Training Program | DX: Z47.89 Encounter for other orthopedic aftercare (principal) | CPT/HCPCS: 97110; 97140; 97161 ==

== ENCOUNTER 2023-03-03 06:00 | Outpatient (RCR) | payer OTHER, MEDICAID, SELFPAY | END 2023-04-01 23:59 | disposition home or self-care (01) | LOC: SPT 06:00 | PROVIDERS: Visit Provider Student in an Organized Health Care Education/Training Program | DX: Z47.89 Encounter for other orthopedic aftercare (principal) | CPT/HCPCS: 97110 ==

== ENCOUNTER → 2023-04-03 11:01 | Outpatient (BNVA) | payer OTHER, MEDICAID, SELFPAY | PROVIDERS: PCP Family Medicine; Referring Provider Family Medicine; Visit Provider Internal Medicine | DX: E03.8 Other specified hypothyroidism (principal); E06.3 Autoimmune thyroiditis; R63.5 Abnormal weight gain | CPT/HCPCS: 36415; 84439; 84443 ==

== ENCOUNTER 2023-06-13 15:57 | Outpatient (CLI) | payer OTHER, MEDICAID, SELFPAY ==
[2023-06-13 17:53] LABS: Free T4 Free Thyroxine 1.24 ng/dL (0.82-1.77)
== END 2023-06-13 15:58 | disposition home or self-care (01) ==
LOC: LAB 15:58
PROVIDERS: PCP Family Medicine; Visit Provider Internal Medicine
DX: E06.3 Autoimmune thyroiditis (principal); E03.8 Other specified hypothyroidism
CPT/HCPCS: 36415; 84439; 84443

== ENCOUNTER 2023-08-29 03:15 | Emergency (ER) | payer OTHER, MEDICAID, SELFPAY ==
[2023-08-29 03:20] VITALS: BP 143/94; PULSE 100; RESP 16; TEMP 36.8; O2SAT 98; BMI 34.3
--- NOTE | 2023-08-29 03:25 | XRR_ITS ---
PROCEDURE INFORMATION: Exam: XR Chest Exam date and time: 08/29/2023 3:31 AM Age: 22 years old Clinical indication: Chest pressure; Patient HX: C/O chest pain TECHNIQUE: Imaging protocol: Radiologic exam of the chest. Views: 1 view. COMPARISON: CR XR chest 2V* [id number] 03/14/2023 9:01 AM FINDINGS: Lungs: Unremarkable. No consolidation. Pleural spaces: Unremarkable. No pleural effusion. No pneumothorax. Heart/Mediastinum: Unremarkable. No cardiomegaly. Bones/joints: Unremarkable. XR/XR chest 1V portable [id number] IMPRESSION: No acute findings.
--- NOTE | 2023-08-29 03:26 | ECG_ITS ---
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 Measurements Intervals [place] Rate: 100 P: 45 RI: 118 QRS: 57 QRSD: 98 T: 22 QT: 341 QTc: 440 Interpretive Statements SINUS TACHYCARDIA WITH SHORT RI INTERVAL Compared to ECG 02/15/2022 23:05:46 Short RI interval now present Sinus rhythm no longer present Sinus arrhythmia no longer present Electronically Signed On 08-29-2023 7:51:51 [employer] by Sebastián Austin M.D. [email or web address]
--- NOTE | 2023-08-29 03:32 | ED_ITS ---
Documented by User: Mendez Thorpe DO 08/29/23 03:36 HPI - Chest Pain 2 General: Chief Complaint: Chest Pain Stated Complaint: N/V, Fall Time Seen by Provider: 08/29/23 03:21 History of Present Illness: Patient presents to the ER via wheelchair from the ICU. Patient was making her rounds to the ICU when she had a near syncopal episode. She states she sat down when she felt weird and started having some chest pain. Patient has had this pain off and on for the last several days. Even before that she has had it before and she had an inhaler that seemed to help. Patient did use her inhaler this time but it did not seem to help. Patient said the chest pain is midsternally and does not radiate. Patient denied any nausea vomiting, did get short of breath, denies diaphoresis. Denies any overt sickness. Review of Systems 2 General: Reports: 10 or more systems reviewed and unremarkable except in HPI and below PFSH ED 2 PFSH: Medical History Patella-femoral syndrome Loose body in knee Tear meniscus knee No pertinent past medical history neghx: htn,dm,thyroid,dvt/pe PCP: Dr. Elizondo Surgical History Hx of wisdom tooth extraction (~2018) History of tonsillectomy as a child History of placement of ear tubes x2 as a child Hx of appendectomy (~10/2020) Family History Grandmother Diabetes Paternal Grandfather Diabetes Paternal Mother Hypertension Denies family history of Colon cancer Ovarian cancer Heart disease Hypercholesteremia Breast cancer Uterine cancer Thyroid disease Stroke Social History Smoking and tobacco/nicotine status: never used tobacco/nicotine Alcohol intake: never Female Reproductive History: Date of last menstrual period: 07/29/23 Physical Exam 2 Const: COMMON NORMALS: no acute distress, average body habitus, patient oriented x3, no limitations, healthy appearing, alert and well nourished HENMT: COMMON NORMALS: normocephalic, atraumatic, hearing grossly normal bilaterally, external ears normal, EAC's normal, Normal external nose present, moist oral mucous membranes and oropharynx normal HEAD & SCALP: normocephalic and atraumatic NOSE: Normal external nose present EXTERNAL EAR: Yes external ears normal EXTERNAL AUDITORY CANAL: EAC's normal Neck/C-Spine: COMMON NORMALS: no JVD Chest: COMMONS NORMALS: normal inspection of the chest and normal palpation of entire chest wall Resp: COMMON NORMALS: normal respiratory effort, No retractions, No use of accessory muscles and clear to auscultation bilaterally AUSCULTATION: clear to auscultation bilaterally Cardio: COMMON NORMALS: no JVD, regular rate, regular rhythm, S1 normal heart sound present, S2 normal heart sound present, No gallops present (Cardio), No clicks present (Cardio), No murmurs present (Cardio) and No rub (Cardio) R ATE: regular rate RHYTHM: regular rhythm HEART SOUNDS: S1 normal heart sound present and S2 normal heart sound present GI: COMMON NORMALS: Normal to inspection, nondistended, normoactive bowel sounds present, Soft to palpation, non-tender, No hepatosplenomegaly present and no masses PALPATION: Yes Soft to palpation and Yes No hepatosplenomegaly present Neuro: COMMON NORMALS: patient oriented x3 SENSORIUM/ORIENTATION: Yes alert Course 2 Vital Signs: Vital signs: Vital Signs Temperature 98.2 F 08/29/23 03:20 Pulse Rate 87 08/29/23 06:06 Respiratory Rate 16 08/29/23 06:06 Blood Pressure 129/88 08/29/23 06:06 Pulse Oximetry 96 08/29/23 06:06 Oxygen Delivery Me thod Room Air 08/29/23 06:06 MDM - Chest Pain Differential Diagnosis Unlikely acute massive pulmonary embolism, acute respiratory failure, acute myocardial infarction, cardiac arrest or sudden cardiac Medical Records I reviewed the patient's medical records. Lab Data I reviewed the patient's lab results. 08/29/23 03:28 08/29/23 03:28 Radiology Impressions Chest X-Ray 08/29/23 03:25 IMPRESSION: No acute findings. Laboratory Results WBC 9.72 10^3/uL (4.5-13.0) 08/29/23 03:28 RBC 5.35 10^6/uL (3.85-5.65) 08/29/23 03:28 Hgb 13.00 g/dL (12.4-14.8) 08/29/23 03:28 Hct 42.5 % (36-47) 08/29/23 03: MCV 79.4 fl (85-98) L 08/29/23 03:28 MCH 24.3 pg (27-33) L 08/29/23 03: MCHC 30.6 g/dL (30-55) 08/29/23 03:28 RDW 15.8 % (12.1-15.1) H 08/29/23 03:28 Plt Count 304 10^3/cmm (157-399) 08/29/23 03:28 MPV 10.8 fL (7.4-10.4) H 08/29/23 03:28 Neut % (Auto) 70.4 % 08/29/23 03: Lymph % (Auto) 20.0 % 08/29/23 03:28 [place] % (Auto) 6.0 % 08/29/23 03:28 Eos % (Auto) 2.8 % 08/29/23 03:28 Baso % (Auto) 0.6 % 08/29/23 03:28 Neut # (Auto) 6.85 10^3/uL (1.8-8.0) 08/29/23 03: Lymph # (Auto) 1.9 10^3/uL (1.5-6.5) 08/29/23 03:28 [place] # (Auto) 0.6 10^3/uL (0.2-0.9) 08/29/23 03:28 Eos # (Auto) 0.3 10^3/uL (0.0-0.8) 08/29/23 03:28 Baso # (Auto) 0.1 10^3/uL (0.0-0.1) 08/29/23 03:28 Nucleated RBC % (auto) 0 % 08/29/23 03: Nucleated RBCs # 0.0 /100WBC 08/29/23 03:28 Sodium 140 mmol/L (136-145) 08/29/23 03:28 Potassium 4.2 mmol/L (3.5-5.1) 08/29/23 03:28 Chloride 104 mmol/L (98-107) 08/29/23 03:28 Carbon Dioxide 23 mmol/L (22-29) 08/29/23 03:28 Anion Gap 17.2 (5-19) 08/29/23 03:28 BUN 10 mg/dL (6-20) 08/29/23 03:28 Creatinine 0.9 mg/dL (0.5-0.9) 08/29/23 03:28 GFR Calculation 79.8 mL/min (90-130) L 08/29/23 03:28 Glucose 114 mg/dL (65-115) 08/29/23 03:28 Calculated Osmolality 290 mOsm/kg (285-295) 08/29/23 03:28 Calcium 8.9 mg/dL (8.5-10.5) 08/29/23 03:28 Total Bilirubin 0.2 mg/dL (0.15-1.2) 08/29/23 03:28 AST 13 U/L (0-32) 08/29/23 03:28 ALT 15 U/L (0-33) 08/29/23 03:28 Alkaline Phosphatase 79 U/L (35-105) 08/29/23 03:28 Troponin T Baseline < 6 ng/L (0-10) 08/29/23 03:28 Troponin T 120 Minute 6.00 ng/L (0-10) 08/29/23 05:46 Delta Troponin T 0.30847 ABS# (0-10) 08/29/23 05:46 Total Protein 7.7 g/dL (6.6-8.7) 08/29/23 03:28 Albumin 4.0 g/dL (3.5-5.2) 08/29/23 03:28 Globulin 3.7 g/dL (1.3-4.6) 08/29/23 03:28 TSH 5.38 uIU/mL (0.27-4.20) H 08/29/23 03:28 Urine Color Light yellow (Yellow) 08/29/23 04:51 Urine Appearance Hazy (CLEAR) A 08/29/23 04:51 Urine pH 6 (5-7) 08/29/23 04:51 Ur Specific Hines 1.010 (1.005-1.030) 08/29/23 04:51 Urine Protein Neg (Negative) 08/29/23 04:51 Urine Glucose (UA) Norm (Normal) 08/29/23 04:51 Urine Ketones Negative (Negative) 08/29/23 04:51 Urine Blood Neg (Negative) 08/29/23 04:51 Urine Nitrate Negative (Negative) 08/29/23 04:51 Urine Bilirubin Neg (Negative) 08/29/23 04:51 Urine Urobilinogen Neg mg/dL (Negative) 08/29/23 04:51 Ur Leukocyte Esterase 2+ (Negative) H 08/29/23 04:51 Urine RBC None /hpf (0-2) 08/29/23 04:51 Urine WBC 15-25 /hpf (0-5) H 08/29/23 04:51 Ur Squamous Epith Cells 10-15 /hpf (0-5) H 08/29/23 04:51 Amorphous Sediment Not Reportable 08/29/23 04:51 Urine Bacteria 1+ /hpf (NONE) H 08/29/23 04:51 All radiology interpretation(s) finalized by discharge EKG Data EKG 1: I personally reviewed and interpreted this EKG as follows: EKG interpretation date: 08/29/23 EKG interpretation time: 03:30 Prior EKG tracings: not available for review Interpretation: Ventricular rate 100 bpm, GA interval 118, QRS duration 98, QTc of 398, sinus tachycardia with short GA interval Discharge Plan Discharge Patient Disposition: Home Clinical Impression: Near syncope, Elevated blood pressure reading Condition: Stable Prescriptions: No Action desogestrel-ethinyl estradiol [Isibloom] 0.15-0.03 mg tablet 1 tab PO DAILY mecobalamin (vitamin B12) 5,000 mcg tablet,disintegrating PO albuterol sulfate 90 mcg/actuation HFA aerosol inhaler 2 puff inhalation Q6H PRN (Reason: Pain) levothyroxine 100 mcg tablet 100 mcg PO DAILY Qty: 60 0RF acetaminophen [Tylenol] 325 mg Tablet 325 mg PO QID PRN (Reason: Pain) ibuprofen 800 mg Tablet 800 mg PO Q6H PRN (Reason: Pain) Hold Instructions: Resume on 01/20/23. Hold until postop visit Discharge Orders: Discharge ED (Routine); Ordered 08/29/23 Ordered By: Rocky Mckinnon Referrals: Brett Elizondo MD [Primary Care Provider] - Discharge Diet: Usual diet Discharge Activity: Increase activity as tolerated Patient Instructions: Opioid Safety, Pain Management Activity Restrictions/Additional Instructions: Thank you for choosing [facility] for your healthcare needs today. Please realize this is an emergency room and that we are providing you with a medical screening exam and this may not be complete and all inclusive of all the testing and or work up that you may need to determine your ailment or severity of your illness. It is very important that you follow up as instructed or that you return to the Emergency Department should you have concerns or if your condition changes or worsens in any way. You were seen today for near syncopal episode. Your heart enzymes and EKGs did not show any clinically significant abnormalities. Recommend that you have a 48-hour Holter monitor, welfare case worker will make arrangements for this. Follow-up with your primary care doctor to reevaluate after the 48-hour Holter monitor and evaluate your blood pressure. Your blood pressure was mildly elevated while in the emergency room. Your primary care doctor will determine if any treatment needs to be started based on outpatient monitoring. Stand Alone Forms: Work/School Release Coding Level of Care Code ED Gear Hobber for Chg Fwd Documented by User: Rocky Mckinnon DO 08/29/23 07:02 HPI - Chest Pain 2 General: Chief Complaint: Chest Pain Stated Complaint: N/V, Fall Time Seen by Provider: 08/29/23 03:21 [facility] ED 2 PFSH: Medical History Patella-femoral syndrome Loose body in knee Tear meniscus knee No pertinent past medical history neghx: htn,dm,thyroid,dvt/pe PCP: Dr. Elizondo Surgical History Hx of wisdom tooth extraction (~2018) History of tonsillectomy as a child History of placement of ear tubes x2 as a child Hx of appendectomy (~10/2020) Family History Grandmother Diabetes Paternal Grandfather Diabetes Paternal Mother Hypertension Denies family history of Colon cancer Ovarian cancer Heart disease Hypercholesteremia Breast cancer Uterine cancer Thyroid disease Stroke Social History Smoking and tobacco/nicotine status: never used tobacco/nicotine Alcohol intake: never Course 2 Vital Signs: Vital signs: Vital Signs Temperature 98.2 F 08/29/23 03:20 Pulse Rate 87 08/29/23 06:06 Respiratory Rate 16 08/29/23 06:06 Blood Pressure 129/88 08/29/23 06:06 Pulse Oximetry 96 08/29/23 06:06 Oxygen Delivery Me thod Room Air 08/29/23 06:06 MDM - Chest Pain Medical Decision Making Assumed care at change of shift cardiac enzymes negative. EKG does not show any acute changes patient is not had any recurrence of symptoms blood pressure mildly elevated. Does not recommend treating blood pressure at this time but should be followed up with her primary care as an outpatient. Will discharge home set up 48-hour Holter monitor. Medical Records I reviewed the patient's medical records. Lab Data I reviewed the patient's lab results. 08/29/23 03:28 08/29/23 03:28 Radiology Impressions Chest X-Ray 08/29/23 03:25 IMPRESSION: No acute findings. Laboratory Results WBC 9.72 10^3/uL (4.5-13.0) 08/29/23 03:28 RBC 5.35 10^6/uL (3.85-5.65) 08/29/23 03:28 Hgb 13.00 g/dL (12.4-14.8) 08/29/23 03:28 Hct 42.5 % (36-47) 08/29/23 03:28 MCV 79.4 fl (85-98) L 08/29/23 03:28 MCH 24.3 pg (27-33) L 08/29/23 03:28 MCHC 30.6 g/dL (30-55) 08/29/23 03:28 RDW 15.8 % (12.1-15.1) H 08/29/23 03:28 Plt Count 304 10^3/cmm (157-399) 08/29/23 03:28 MPV 10.8 fL (7.4-10.4) H 08/29/23 03:28 Neut % (Auto) 70.4 % 08/29/23 03:28 Lymph % (Auto) 20.0 % 08/29/23 03:28 [place] % (Auto) 6.0 % 08/29/23 03:28 Eos % (Auto) 2.8 % 08/29/23 03:28 Baso % (Auto) 0.6 % 08/29/23 03:28 Neut # (Auto) 6.85 10^3/uL (1.8-8.0) 08/29/23 03:28 Lymph # (Auto) 1.9 10^3/uL (1.5-6.5) 08/29/23 03:28 [place] # (Auto) 0.6 10^3/uL (0.2-0.9) 08/29/23 03:28 Eos # (Auto) 0.3 10^3/uL (0.0-0.8) 08/29/23 03:28 Baso # (Auto) 0.1 10^3/uL (0.0-0.1) 08/29/23 03:28 Nucleated RBC % (auto) 0 % 08/29/23 03: Nucleated RBCs # 0.0 /100WBC 08/29/23 03:28 Sodium 140 mmol/L (136-145) 08/29/23 03:28 Potassium 4.2 mmol/L (3.5-5.1) 08/29/23 03:28 Chloride 104 mmol/L (98-107) 08/29/23 03:28 Carbon Dioxide 23 mmol/L (22-29) 08/29/23 03:28 Anion Gap 17.2 (5-19) 08/29/23 03:28 BUN 10 mg/dL (6-20) 08/29/23 03:28 Creatinine 0.9 mg/dL (0.5-0.9) 08/29/23 03:28 GFR Calculation 79.8 mL/min (90-130) L 08/29/23 03:28 Glucose 114 mg/dL (65-115) 08/29/23 03:28 Calculated Osmolality 290 mOsm/kg (285-295) 08/29/23 03:28 Calcium 8.9 mg/dL (8.5-10.5) 08/29/23 03:28 Total Bilirubin 0.2 mg/dL (0.15-1.2) 08/29/23 03:28 AST 13 U/L (0-32) 08/29/23 03:28 ALT 15 U/L (0-33) 08/29/23 03:28 Alkaline Phosphatase 79 U/L (35-105) 08/29/23 03:28 Troponin T Baseline < 6 ng/L (0-10) 08/29/23 03:28 Troponin T 120 Minute 6.00 ng/L (0-10) 08/29/23 05:46 Delta Troponin T 0.31286 ABS# (0-10) 08/29/23 05:46 Total Protein 7.7 g/dL (6.6-8.7) 08/29/23 03:28 Albumin 4.0 g/dL (3.5-5.2) 08/29/23 03:28 Globulin 3.7 g/dL (1.3-4.6) 08/29/23 03:28 TSH 5.38 uIU/mL (0.27-4.20) H 08/29/23 03:28 Urine Color Light yellow (Yellow) 08/29/23 04:51 Urine Appearance Hazy (CLEAR) A 08/29/23 04:51 Urine pH 6 (5-7) 08/29/23 04:51 Ur Specific Hines 1.010 (1.005-1.030) 08/29/23 04:51 Urine Protein Neg (Negative) 08/29/23 04:51 Urine Glucose (UA) Norm (Normal) 08/29/23 04:51 Urine Ketones Negative (Negative) 08/29/23 04:51 Urine Blood Neg (Negative) 08/29/23 04:51 Urine Nitrate Negative (Negative) 08/29/23 04:51 Urine Bilirubin Neg (Negative) 08/29/23 04:51 Urine Urobilinogen Neg mg/dL (Negative) 08/29/23 04:51 Ur Leukocyte Esterase 2+ (Negative) H 08/29/23 04:51 Urine RBC None /hpf (0-2) 08/29/23 04:51 Urine WBC 15-25 /hpf (0-5) H 08/29/23 04:51 Ur Squamous Epith Cells 10-15 /hpf (0-5) H 08/29/23 04:51 Amorphous Sediment Not Reportable 08/29/23 04:51 Urine Bacteria 1+ /hpf (NONE) H 08/29/23 04:51 Discharge Plan Discharge Patient Disposition: Home Clinical Impression: Near syncope, Elevated blood pressure reading Condition: Stable Prescriptions: No Action desogestrel-ethinyl estradiol [Isibloom] 0.15-0.03 mg tablet 1 tab PO DAILY mecobalamin (vitamin B12) 5,000 mcg tablet,disintegrating PO albuterol sulfate 90 mcg/actuation HFA aerosol inhaler 2 puff inhalation Q6H PRN (Reason: Pain) levothyroxine 100 mcg tablet 100 mcg PO DAILY Qty: 60 0RF acetaminophen [Tylenol] 325 mg Tablet 325 mg PO QID PRN (Reason: Pain) ibuprofen 800 mg Tablet 800 mg PO Q6H PRN (Reason: Pain) Hold Instructions: Resume on 01/20/23. Hold until postop visit Discharge Orders: Discharge ED (Routine); Ordered 08/29/23 Ordered By: Rocky Mckinnon Referrals: Brett Elizondo MD [Primary Care Provider] - Discharge Diet: Usual diet Discharge Activity: Increase activity as tolerated Patient Instructions: Opioid Safety, Pain Management Activity Restrictions/Additional Instructions: Thank you for choosing [facility] for your healthcare needs today. Please realize this is an emergency room and that we are providing you with a medical screening exam and this may not be complete and all inclusive of all the testing and or work up that you may need to determine your ailment or severity of your illness. It is very important that you follow up as instructed or that you return to the Emergency Department should you have concerns or if your condition changes or worsens in any way. You were seen today for near syncopal episode. Your heart enzymes and EKGs did not show any clinically significant abnormalities. Recommend that you have a 48-hour Holter monitor, welfare case worker will make arrangements for this. Follow-up with your primary care doctor to reevaluate after the 48-hour Holter monitor and evaluate your blood pressure. Your blood pressure was mildly elevated while in the emergency room. Your primary care doctor will determine if any treatment needs to be started based on outpatient monitoring. Stand Alone Forms: Work/School Release Coding Level of Care Code ED Gear Hobber for Buzz Mcneill
[2023-08-29 03:35] LABS: Basophils # 0.1 10^3/uL (0.0-0.1); Basophils % 0.6 %; Eosinophils # 0.3 10^3/uL (0.0-0.8); Eosinophils % 2.8 %; Hematocrit 42.5 % (36-47); Lymphocytes # 1.9 10^3/uL (1.5-6.5); Mean Corpuscular HGB Conc 30.6 g/dL (30-55); Mean Corpuscular Hemoglobin 24.3 pg (27-33); Mean Corpuscular Volume 79.4 fl (85-98); Mean Platelet Volume 10.8 fL (7.4-10.4); Monocytes # 0.6 10^3/uL (0.2-0.9); Neutrophils # 6.85 10^3/uL (1.8-8.0); Neutrophils % 70.4 %; Nucleated Red Blood Cells % 0 %; Platelet Count 304 10^3/cmm (157-399); Red Blood Count 5.35 10^6/uL (3.85-5.65); Red Cell Distribution Width 15.8 % (12.1-15.1); White Blood Count 9.72 10^3/uL (4.5-13.0)
[2023-08-29 03:52] VITALS: BP 167/90; PULSE 101; RESP 16; O2SAT 96
[2023-08-29 03:58] LABS: Troponin(5th) Baseline < 6 ng/L (0-10)
[2023-08-29 04:07] LABS: Alanine Aminotransferase 15 U/L (0-33); Alkaline Phosphatase 79 U/L (35-105); Anion Gap 17.2 (5-19); Aspartate Amino Transferase 13 U/L (0-32); Blood Urea Nitrogen 10 mg/dL (6-20); Calcium 8.9 mg/dL (8.5-10.5); Carbon Dioxide 23 mmol/L (22-29); Chloride 104 mmol/L (98-107); Creatinine Clr Calc Pharmacy 108.7799; Globulin 3.7 g/dL (1.3-4.6); Glomerular Filtration Rate 79.8 mL/min (90-130); Glucose 114 mg/dL (65-115); Osmolality Calculated 290 mOsm/kg (285-295); Potassium 4.2 mmol/L (3.5-5.1); Sodium 140 mmol/L (136-145); Thyroid Stimulating Hormone 5.38 uIU/mL (0.27-4.20); Total Bilirubin 0.2 mg/dL (0.15-1.2); Total Protein 7.7 g/dL (6.6-8.7)
[2023-08-29 04:49] VITALS: BP 148/93; PULSE 90; RESP 16; O2SAT 98
[2023-08-29 05:04] LABS: Add Urine Microscopic? YES; Bilirubin Urine Neg (Negative); Blood Urine Neg (Negative); Glucose Urine UA Norm (Normal); Ketones Urine Negative (Negative); Leukocyte Esterase Urine 2+ (Negative); Nitrate Urine Negative (Negative); Protein Urine Neg (Negative); Urine Appearance Hazy (CLEAR); Urine Color Light yellow (Yellow); Urobilinogen Urine Neg (Negative); pH Urine 6 (5-7)
[2023-08-29 05:05] LABS: Add Urine Culture? No; Bacteria Urine 1+ /hpf; WBC Urine 15-25 /hpf (0-5)
[2023-08-29 06:06] VITALS: BP 129/88; PULSE 87; RESP 16; O2SAT 96
[2023-08-29] MEDS: acetaminophen 325 mg Tablet 650 MG PO (06:11)
[2023-08-29 06:14] LABS: Troponin 5 2HR Delta 0.00001 ABS# (0-10)
--- NOTE | 2023-08-30 11:52 | DCPLANNER ---
Message sent to cardiology for 48 hr holter monitor.
== END 2023-08-29 07:11 | disposition home or self-care (01) ==
PROVIDERS: Emergency Medicine; Emergency Provider Family Medicine; PCP Family Medicine
DX: R55 Syncope and collapse (principal); R03.0 Elevated blood-pressure reading, without diagnosis of hypertension
CPT/HCPCS: 36415; 71045; 80053; 81001; 84443; 84484; 85025; 93005; 99285

== ENCOUNTER → 2023-10-15 14:37 | Outpatient (BNVA) | payer OTHER, MEDICAID, SELFPAY | PROVIDERS: PCP Family Medicine; Visit Provider Physician Assistant | DX: S99.921A Unspecified injury of right foot, initial encounter (principal); W19.XXXA Unspecified fall, initial encounter | CPT/HCPCS: 73630 ==

== ENCOUNTER → 2024-05-21 15:20 | Outpatient (BNVA) | payer OTHER, SELFPAY | PROVIDERS: PCP Family Medicine; Visit Provider Student in an Organized Health Care Education/Training Program | DX: M25.561 Pain in right knee (principal); M25.562 Pain in left knee; Z98.890 Other specified postprocedural states; M22.2X1 Patellofemoral disorders, right knee; M22.2X2 Patellofemoral disorders, left knee | CPT/HCPCS: 73560; 73565 ==

== ENCOUNTER 2024-06-05 06:00 | Outpatient (RCR) | payer OTHER, SELFPAY | END 2024-07-02 23:59 | disposition home or self-care (01) | LOC: SPT 06:00 | PROVIDERS: PCP Family Medicine; Visit Provider Student in an Organized Health Care Education/Training Program | DX: M25.561 Pain in right knee (principal); M25.562 Pain in left knee | CPT/HCPCS: 97110; 97161 ==

== ENCOUNTER 2024-06-28 12:52 | Emergency (ER) | payer OTHER, SELFPAY ==
--- NOTE | 2024-06-28 13:03 | ECG_ITS ---
[facility] Date: 2024-06-28 Pat Name: Casie Fagan Department: Room: Gender: Female Welfare Service Aide: : 2000 Requested By: Mahnaz Dunne Order Number: [id number] Rowena MD: Sebastián Austin M.D. Measurements Intervals [place] Rate: 89 P: 38 IA: 132 QRS: 48 QRSD: 104 T: 15 QT: 351 QTc: 428 Interpretive Statements SINUS RHYTHM INCOMPLETE RIGHT BUNDLE BRANCH BLOCK [90+ ms QRS DURATION, TERMINAL R IN V1/V2, 40+ ms S IN I/aVL/V4/V5/V6] NONSPECIFIC T-WAVE ABNORMALITY Compared to ECG 08/29/2023 03:30:38 Incomplete right bundle-branch block now present T-wave abnormality now present Sinus tachycardia no longer present Short IA interval no longer present Electronically Signed On 06-28-2024 18:29:02 [employer] by Sebastián Austin M.D. [email or web address]
--- NOTE | 2024-06-28 13:03 | XRR_ITS ---
PROCEDURE INFORMATION: Exam: XR Chest Exam date and time: 06/28/2024 1:12 PM Age: 23 years old Clinical indication: Pain; Chest pressure; Additional info: Cp TECHNIQUE: Imaging protocol: Radiologic exam of the chest. Views: 1 view. COMPARISON: CR XR chest 1V portable [id number] 08/29/2023 3:31 AM FINDINGS: Lungs: Unremarkable. No consolidation. Pleural spaces: Unremarkable. No pleural effusion. No pneumothorax. Heart/Mediastinum: Unremarkable. No cardiomegaly. Bones/joints: Unremarkable. XR/XR chest 1V portable [id number] IMPRESSION: No acute findings.
[2024-06-28 13:04] VITALS: BP 150/95; PULSE 84; RESP 16; TEMP 36.8; O2SAT 99; BMI 41.1
--- NOTE | 2024-06-28 13:20 | W.ED.CHESTPA ---
HPI - Chest Pain General: Chief Complaint: Chest Pain Stated Complaint: chest pain Time Seen by Provider: 06/28/24 13:12 History of Present Illness: 23-year-old female presents emergency room complaining of chest pain complaining of shortness of breath pain with inspiration no productive cough. No fevers. No vomiting no diarrhea nonproductive cough pain worse with deep inspiration Associated symptoms: Deny abdominal pain, dyspnea or fever(s) Related Data Home Medications Medication Instructions Recorded Confirmed albuterol sulfate 90 mcg/actuation 2 puff inhalation Q6H PRN Pain 02/14/22 06/28/24 aerosol inhaler acetaminophen 325 mg tablet 325 mg PO QID PRN Pain 01/05/23 06/28/24 (Tylenol) ferrous fumarate 324 mg (106 mg 324 mg PO DAILY 05/21/24 06/28/24 iron) tablet desogestrel 0.15 mg-ethinyl 1 tab PO QAM 06/28/24 06/28/24 estradiol 0.03 mg tablet (Isibloom) Previous Rx's Medication Instructions Recorded meloxicam 15 mg tablet 15 mg PO DAILY #30 tabs 05/21/24 Allergies Allergy/AdvReac Type Severity Reaction Status Date / Time tramadol Allergy ADR-Headach Verified 06/28/24 13:05 e Review of Systems Const: Denies: fever(s) or chills Card: Denies: chest pain Resp: Denies: dyspnea GI: Denies: abdominal pain : Denies: dysuria, urinary frequency or urinary urgency Musc: Denies: neck pain or back pain Skin/Breast: Denies: rash PFSH ED PFSH: Medical History Patella-femoral syndrome Loose body in knee Tear meniscus knee No pertinent past medical history neghx: htn,dm,thyroid,dvt/pe PCP: Dr. Elizondo Surgical History Hx of wisdom tooth extraction (~2018) History of tonsillectomy as a child History of placement of ear tubes x2 as a child Hx of appendectomy (~10/2020) Family History Grandmother Diabetes Paternal Grandfather Diabetes Paternal Mother Hypertension Denies family history of Colon cancer Ovarian cancer Heart disease Hypercholesteremia Breast cancer Uterine cancer Thyroid disease Stroke Social History Smoking and tobacco/nicotine status: never used tobacco/nicotine Alcohol intake: never Female Reproductive History: Date of last menstrual period: 06/21/24 Physical Exam Const: COMMON NORMALS: no acute distress GENERAL APPEARANCE: cooperative and comfortable ORIENTATION/CONSCIOUSNESS: Yes awake, Yes oriented to person, Yes oriented to place and Yes oriented to time HENMT: COMMON NORMALS: normocephalic, atraumatic and hearing grossly normal bilaterally HEAD & SCALP: normocephalic and atraumatic Resp: COMMON NORMALS: normal respiratory effort, No retractions, No use of accessory muscles and clear to auscultation bilaterally AUSCULTATION: clear to auscultation bilaterally Cardio: COMMON NORMALS: regular rate, regular rhythm and No murmurs present (Cardio) RATE: regular rate RHYTHM: regular rhythm GI: COMMON NORMALS: Soft to palpation and No hepatosplenomegaly present AUSCULTATION: Yes normoactive bowel sounds PALPATION: Yes Soft to palpation, No Tenderness to palpation present (GI), No Guarding due to palpation present (GI) and Yes No hepatosplenomegaly present Extremity: COMMON NORMALS: normal to inspection, capillary refill normal, no clubbing, cyanosis or edema, no calf tenderness and no pedal edema Neuro: SENSORIUM/ORIENTATION: Yes oriented to person, Yes oriented to place and Yes oriented to time Skin: COMMON NORMALS: no rashes or lesions noted GENERAL SKIN EXAM: no rashes or lesions noted Course Vital Signs: Vital signs: Vital Signs Temperature 98.2 F 06/28/24 13:04 Pulse Rate 86 06/28/24 15:30 Respiratory Rate 15 06/28/24 14:30 Blood Pressure 116/92 06/28/24 15:30 Pulse Oximetry 100 06/28/24 15:30 Oxygen Delivery Me thod Room Air 06/28/24 15:30 MDM - Chest Pain Medical Decision Making Chest pain pleuritic in nature will discharge patient home anti-inflammatories. Can also use acetaminophen as needed. Follow-up with your primary care Lab Data 06/28/24 13:55 06/28/24 13:55 Laboratory Results WBC 10.17 10^3/uL (3.29-11.43) 06/28/24 13:55 RBC 4.77 10^6/uL (3.85-5.65) 06/28/24 13:55 Hgb 12.70 g/dL (11.27-16.99) 06/28/24 13:55 Hct 40.8 % (36-47) 06/28/24 13:55 MCV 85.5 fl (85-98) 06/28/24 13:55 MCH 26.6 pg (27-33) L 06/28/24 13:55 MCHC 31.1 g/dL (30-55) 06/28/24 13:55 RDW 13.8 % (12.1-15.1) 06/28/24 13:55 Plt Count 241 10^3/cmm (157-399) 06/28/24 13:55 MPV 11.0 fL (7.4-10.4) H 06/28/24 13:55 Neut % (Auto) 69.8 % 06/28/24 13:55 Lymph % (Auto) 20.0 % 06/28/24 13:55 [place] % (Auto) 7.0 % 06/28/24 13:55 Eos % (Auto) 2.1 % 06/28/24 13:55 Baso % (Auto) 0.8 % 06/28/24 13:55 Neut # (Auto) 7.11 10^3/uL (1.8-7.7) 06/28/24 13:55 Lymph # (Auto) 2.0 10^3/uL (0.8-4.8) 06/28/24 13:55 [place] # (Auto) 0.7 10^3/uL (0.2-0.9) 06/28/24 13:55 Eos # (Auto) 0.2 10^3/uL (0.0-0.8) 06/28/24 13:55 Baso # (Auto) 0.1 10^3/uL (0.0-0.1) 06/28/24 13:55 Nucleated RBC % (auto) 0 % 06/28/24 13:55 Nucleated RBCs # 0.0 /100WBC 06/28/24 13:55 D-Dimer 0.33 ug/mLFEU (0-0.59) 06/28/24 13:55 Sodium 137 mmol/L (136-145) 06/28/24 13:55 Potassium 4.3 mmol/L (3.5-5.1) 06/28/24 13:55 Chloride 102 mmol/L (98-107) 06/28/24 13:55 Carbon Dioxide 23 mmol/L (22-29) 06/28/24 13:55 Anion Gap 16.3 (5-19) 06/28/24 13:55 BUN 12 mg/dL (6-20) 06/28/24 13:55 Creatinine 0.8 mg/dL (0.5-0.9) 06/28/24 13:55 GFR Calculation 90.5 mL/min (90-130) 06/28/24 13:55 Glucose 96 mg/dL (65-115) 06/28/24 13:55 Calculated Osmolality 284 mOsm/kg (285-295) L 06/28/24 13:55 Calcium 9.4 mg/dL (8.5-10.5) 06/28/24 13:55 Total Bilirubin 0.2 mg/dL (0.15-1.2) 06/28/24 13:55 AST 13 U/L (0-32) 06/28/24 13:55 ALT 14 U/L (0-33) 06/28/24 13:55 Alkaline Phosphatase 58 U/L (35-105) 06/28/24 13:55 Troponin T Baseline < 6 ng/L (0-10) 06/28/24 13:55 Troponin T 120 Minute 6.00 ng/L (0-10) 06/28/24 16:02 Delta Troponin T 0.29072 ABS# (0-10) 06/28/24 16:02 Total Protein 7.2 g/dL (6.6-8.7) 06/28/24 13:55 Albumin 3.9 g/dL (3.5-5.2) 06/28/24 13:55 Globulin 3.3 g/dL (1.3-4.6) 06/28/24 13:55 Coronavirus (PCR) Negative (Negative) 06/28/24 13:20 Influenza A (PCR) Negative (Negative) 06/28/24 13:20 Influenza Type B (PCR) Negative (Negative) 06/28/24 13:20 RSV (PCR) Negative (Negative) 06/28/24 13:20 XR interpretation done by ED provider, pending radiology final review ED provider radiology interpretation(s): Chest x-ray no acute findings normal lung [place] no cardiomegaly suboptimal inspiration. Osseous structures without significant abnormality Discharge Plan Discharge Patient Disposition: Home Clinical Impression: Atypical chest pain Condition: Stable Prescriptions: No Action ferrous fumarate 324 mg (106 mg iron) tablet 324 mg PO DAILY meloxicam 15 mg tablet 15 mg PO DAILY Qty: 30 2RF albuterol sulfate 90 mcg/actuation HFA aerosol inhaler 2 puff inhalation Q6H PRN (Reason: Pain) acetaminophen [Tylenol] 325 mg Tablet 325 mg PO QID PRN (Reason: Pain) desogestrel-ethinyl estradiol [Isibloom] 0.15-0.03 mg tablet 1 tab PO QAM Discharge Orders: Discharge ED (Routine); Ordered 06/28/24 Ordered By: Rocky Mckinnon Referrals: Brett Elizondo MD [Primary Care Provider] - Discharge Diet: Usual diet Discharge Activity: Increase activity as tolerated Patient Instructions: Opioid Safety, Pain Management Activity Restrictions/Additional Instructions: Thank you for choosing [facility] for your healthcare needs today. It is very important that you follow up as instructed or that you return to the Emergency Department should you have concerns or if your condition changes or worsens in any way. You are seen in the emergency room with complaint of chest pain. Chest x-ray is normal COVID swab is negative your white count is negative troponin and EKG are negative. Your symptoms are not suggestive of acute coronary syndrome. Suspect this is more musculoskeletal or pleuritic in nature. 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
[2024-06-28 14:00] VITALS: BP 113/83; PULSE 94; RESP 16; O2SAT 100
[2024-06-28 14:01] LABS: Basophils # 0.1 10^3/uL (0.0-0.1); Basophils % 0.8 %; Eosinophils # 0.2 10^3/uL (0.0-0.8); Eosinophils % 2.1 %; Hematocrit 40.8 % (36-47); Mean Corpuscular HGB Conc 31.1 g/dL (30-55); Mean Corpuscular Hemoglobin 26.6 pg (27-33); Mean Corpuscular Volume 85.5 fl (85-98); Monocytes # 0.7 10^3/uL (0.2-0.9); Neutrophils # 7.11 10^3/uL (1.8-7.7); Neutrophils % 69.8 %; Nucleated Red Blood Cells % 0 %; Platelet Count 241 10^3/cmm (157-399); Red Blood Count 4.77 10^6/uL (3.85-5.65); Red Cell Distribution Width 13.8 % (12.1-15.1); White Blood Count 10.17 10^3/uL (3.29-11.43)
[2024-06-28 14:06] LABS: Covid PCR NEGATIVE (Negative); Influenza A NEGATIVE (Negative); Influenza B NEGATIVE (Negative); Respiratory Syncytial Virus Ce NEGATIVE (Negative)
[2024-06-28 14:16] LABS: D Dimer 0.33 ug/mLFEU (0-0.59)
[2024-06-28 14:19] LABS: Alanine Aminotransferase 14 U/L (0-33); Albumin Level 3.9 g/dL (3.5-5.2); Alkaline Phosphatase 58 U/L (35-105); Anion Gap 16.3 (5-19); Aspartate Amino Transferase 13 U/L (0-32); Blood Urea Nitrogen 12 mg/dL (6-20); Calcium 9.4 mg/dL (8.5-10.5); Carbon Dioxide 23 mmol/L (22-29); Chloride 102 mmol/L (98-107); Creatinine Clr Calc Pharmacy 134.1024; Globulin 3.3 g/dL (1.3-4.6); Glomerular Filtration Rate 90.5 mL/min (90-130); Glucose 96 mg/dL (65-115); Osmolality Calculated 284 mOsm/kg (285-295); Potassium 4.3 mmol/L (3.5-5.1); Sodium 137 mmol/L (136-145); Total Bilirubin 0.2 mg/dL (0.15-1.2); Total Protein 7.2 g/dL (6.6-8.7)
[2024-06-28 14:30] VITALS: BP 126/83; PULSE 100; RESP 15; O2SAT 99
[2024-06-28 15:05] LABS: Troponin(5th) Baseline < 6 ng/L (0-10)
[2024-06-28 15:30] VITALS: BP 116/92; PULSE 86; O2SAT 100
[2024-06-28 16:37] VITALS: BP 103/82; PULSE 84; O2SAT 97
[2024-06-28 16:38] LABS: Troponin 5 2HR Delta 0.00001 ABS# (0-10)
== END 2024-06-28 16:39 | disposition home or self-care (01) ==
PROVIDERS: Emergency Provider Family Medicine; PCP Family Medicine
DX: R07.89 Other chest pain (principal); Z11.52 Encounter for screening for COVID-19
CPT/HCPCS: 36415; 71045; 80053; 84484; 85025; 85378; 87637; 93005; 99285

== ENCOUNTER 2024-11-21 15:14 | Emergency (ER) | payer OTHER, SELFPAY ==
--- NOTE | 2024-11-21 15:22 | ECG_ITS ---
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 Measurements Intervals [place] Rate: 86 P: 52 NV: 114 QRS: 80 QRSD: 98 T: 62 QT: 351 QTc: 420 Interpretive Statements SINUS RHYTHM WITH SINUS ARRHYTHMIA WITH SHORT NV INTERVAL Compared to ECG 06/28/2024 12:58:11 Short NV interval now present Incomplete right bundle-branch block no longer present T-wave abnormality no longer present Electronically Signed On 11-21-2024 18:01:13 CDT by Lorena Garcia M.D. [email or web address]
[2024-11-21 15:23] VITALS: BP 140/87; PULSE 100; RESP 17; TEMP 36.6; O2SAT 99; BMI 41.1
[2024-11-21 20:26] LABS: Basophils # 0.1 10^3/uL (0.0-0.1); Eosinophils # 0.3 10^3/uL (0.0-0.8); Hematocrit 43.8 % (36-47); Lymphocytes # 2.2 10^3/uL (0.8-4.8); Lymphocytes % 23.8 %; Mean Corpuscular HGB Conc 30.1 g/dL (30-55); Mean Corpuscular Hemoglobin 24.4 pg (27-33); Mean Platelet Volume 10.2 fL (7.4-10.4); Monocytes # 0.7 10^3/uL (0.2-0.9); Monocytes % 7.1 %; Neutrophils # 5.93 10^3/uL (1.8-7.7); Neutrophils % 64.8 %; Nucleated Red Blood Cells % 0 %; Platelet Count 332 10^3/cmm (157-399); Red Blood Count 5.41 10^6/uL (3.85-5.65); Red Cell Distribution Width 14.6 % (12.1-15.1); White Blood Count 9.15 10^3/uL (3.29-11.43)
[2024-11-21 20:41] LABS: INR 0.92 (0.8-1.2)
[2024-11-21 20:42] LABS: Alanine Aminotransferase 30 U/L (0-33); Albumin Level 4.1 g/dL (3.5-5.2); Alkaline Phosphatase 83 U/L (35-105); Anion Gap 15.4 (5-19); Aspartate Amino Transferase 19 U/L (0-32); Blood Urea Nitrogen 11 mg/dL (6-20); Calcium 9.7 mg/dL (8.5-10.5); Carbon Dioxide 25 mmol/L (22-29); Chloride 100 mmol/L (98-107); Globulin 4.5 g/dL (1.3-4.6); Glomerular Filtration Rate 104.6 mL/min (90-130); Glucose 85 mg/dL (65-115); Osmolality Calculated 281 mOsm/kg (285-295); Potassium 4.4 mmol/L (3.5-5.1); Sodium 136 mmol/L (136-145); Total Bilirubin 0.2 mg/dL (0.15-1.2); Total Protein 8.6 g/dL (6.6-8.7)
[2024-11-21 20:44] LABS: D Dimer 0.55 ug/mLFEU (0-0.59)
--- NOTE | 2024-11-21 21:19 | XRR_ITS ---
PROCEDURE INFORMATION: Exam: XR Chest Exam date and time: 11/21/2024 9:27 PM Age: 24 years old Clinical indication: Shortness of breath TECHNIQUE: Imaging protocol: Radiologic exam of the chest. Views: 1 view. COMPARISON: CR XR chest 1V portable [id number] 06/28/2024 1:12 PM FINDINGS: Lungs: Unremarkable. No consolidation. Pleural spaces: Unremarkable. No pleural effusion. No pneumothorax. Heart/Mediastinum: Unremarkable. No cardiomegaly. Bones/joints: Unremarkable. XR/XR chest 1V portable [id number] IMPRESSION: No acute findings.
--- NOTE | 2024-11-21 21:39 | W.ED.SOB ---
HPI - SOB/Dyspnea General: Chief Complaint: Shortness of Breath/Dyspnea Stated Complaint: trouble breathing Time Seen by Provider: 11/21/24 21:34 History of Present Illness: HPI Narrative: Patient presents with chest pain and exertional dyspnea for about a week now. She was seen by primary and she is very tender to palpation in her central chest area. Apparently she had a D-dimer that was slightly elevated so she was sent to the emergency room. No lower extremity swelling. She is not tachycardic. She is not hypoxemic. Related Data Home Medications ?Medication ?Instructions ?Recorded ?Confirmed albuterol sulfate 90 mcg/actuation 2 puff inhalation Q6H PRN Pain 02/14/22 06/28/24 aerosol inhaler acetaminophen 325 mg tablet 325 mg PO QID PRN Pain 01/05/23 06/28/24 (Tylenol) ferrous fumarate 324 mg (106 mg 324 mg PO DAILY 05/21/24 06/28/24 iron) tablet desogestrel 0.15 mg-ethinyl 1 tab PO QAM 06/28/24 06/28/24 estradiol 0.03 mg tablet (Isibloom) Previous Rx's ?Medication ?Instructions ?Recorded meloxicam 15 mg tablet 15 mg PO DAILY #30 tabs 05/21/24 Allergies Allergy/AdvReac Type Severity Reaction Status Date / Time tramadol Allergy ADR-Headach Verified 06/28/24 13:05 e Review of Systems Narrative: Constitutional symptoms: Negative except as documented in HPI. Skin symptoms: Negative except as documented in HPI. Eye symptoms: Negative except as documented in HPI. ENMT symptoms: Negative except as documented in HPI. Respiratory symptoms: Negative except as documented in HPI. Cardiovascular symptoms: Negative except as documented in HPI. Gastrointestinal symptoms: Negative except as documented in HPI. Genitourinary symptoms: Negative except as documented in HPI. Musculoskeletal symptoms: Negative except as documented in HPI. Neurologic symptoms: Negative except as documented in HPI. Psychiatric symptoms: Negative except as documented in HPI. Endocrine symptoms: Negative except as documented in HPI. PFSH ED PFSH: Medical History Patella-femoral syndrome Loose body in knee Tear meniscus knee No pertinent past medical history neghx: htn,dm,thyroid,dvt/pe PCP: Dr. Elizondo Surgical History Hx of wisdom tooth extraction (~2018) History of tonsillectomy as a child History of placement of ear tubes x2 as a child Hx of appendectomy (~10/2020) Family History Grandmother Diabetes Paternal Grandfather Diabetes Paternal Mother Hypertension Denies family history of Colon cancer Ovarian cancer Heart disease Hypercholesteremia Breast cancer Uterine cancer Thyroid disease Stroke Social History Smoking and tobacco/nicotine status: never used tobacco/nicotine Alcohol intake: never Female Reproductive History: Date of last menstrual period: 11/17/24 Physical Exam Narrative: EXAM NARRATIVE: General: Alert, no acute distress. Skin: Warm, dry. Head: Normocephalic, atraumatic. Neck: Supple, trachea midline. Eye: Extraocular movements are intact. Ears, nose, mouth and throat: mucosa moist. Cardiovascular: Regular, Normal peripheral perfusion. Respiratory: Lungs are clear to auscultation, respirations are non-labored, breath sounds are equal, Symmetrical chest wall expansion. Gastrointestinal: Soft, Nontender, Non distended Musculoskeletal: Normal ROM, no deformity. Neurological: Alert and oriented, No focal neurological deficit observed. Psychiatric: Cooperative, appropriate mood & affect. Course Vital Signs: Vital signs: Vital Signs Temperature 97.9 F 11/21/24 15:23 Pulse Rate 100 11/21/24 15:23 Respiratory Rate 17 11/21/24 15:23 Blood Pressure 140/87 11/21/24 15:23 Pulse Oximetry 99 11/21/24 15:23 Oxygen Delivery Me thod Room Air 11/21/24 15:23 MDM - SOB/Dyspnea Medical Decision Making Differential diagnosis for patient with chest pain includes but is not limited to and based on the above HPI, review of systems and physical exam: Pneumonia. unstable angina. angina. Acute coronary syndrome / NC. Pulmonary embolism. Costochondritis / musculoskeletal. Pleurisy. Pericarditis. Esophageal spasm. Pancreatis. Cholecystitis. Orders placed to evaluate differential diagnosis based on the above differential, HPI and physical exam Chest x-ray: No acute process. No infiltrate. No pneumothorax. This was reviewed and interpreted by myself the emergency room physician. I also reviewed the radiology report. EKG: Time 1522. Rate 88. Normal sinus rhythm, No ST-T changes, no ectopy, normal ME & QRS intervals, This was reviewed and interpreted by myself the ER physician Lab Review: Laboratory results were reviewed and interpreted by myself the emergency room physician. D-dimer is negative. No leukocytosis. No anemia. No renal failure. I reviewed the patient's medical record. Assessment and plan: Noncardiac chest pain - Discharged home - Discussed plan with patient. Answered any questions. - Evaluation and treatment of this problem were appropriate in the emergency setting. Lab Data 11/21/24 20:19 11/21/24 20:19 Labs/Radiology: Laboratory Results WBC 9.15 10^3/uL (3.29-11.43) 11/21/24 20: RBC 5.41 10^6/uL (3.85-5.65) 11/21/24 20:19 Hgb 13.20 g/dL (11.27-16.99) 11/21/24 20: Hct 43.8 % (36-47) 11/21/24 20:19 MCV 81.0 fl (85-98) L 11/21/24 20:19 MCH 24.4 pg (27-33) L 11/21/24 20:19 MCHC 30.1 g/dL (30-55) 11/21/24 20:19 RDW 14.6 % (12.1-15.1) 11/21/24 20:19 Plt Count 332 10^3/cmm (157-399) 11/21/24 20: MPV 10.2 fL (7.4-10.4) 11/21/24 20:19 Neut % (Auto) 64.8 % 11/21/24 20:19 Lymph % (Auto) 23.8 % 11/21/24 20:19 [place] % (Auto) 7.1 % 11/21/24 20:19 Eos % (Auto) 3.0 % 11/21/24 20: Baso % (Auto) 1.0 % 11/21/24 20:19 Neut # (Auto) 5.93 10^3/uL (1.8-7.7) 11/21/24 20:19 Lymph # (Auto) 2.2 10^3/uL (0.8-4.8) 11/21/24 20:19 [place] # (Auto) 0.7 10^3/uL (0.2-0.9) 11/21/24 20:19 Eos # (Auto) 0.3 10^3/uL (0.0-0.8) 11/21/24 20:19 Baso # (Auto) 0.1 10^3/uL (0.0-0.1) 11/21/24 20:19 Nucleated RBC % (auto) 0 % 11/21/24 20:19 Nucleated RBCs # 0.0 /100WBC 11/21/24 20:19 PT 13.00 SECONDS (12.1-14.9) 11/21/24 20:19 INR 0.92 (0.8-1.2) 11/21/24 20:19 APTT 29.0 SECONDS (23.9-36.7) 11/21/24 20:19 D-Dimer 0.55 ug/mLFEU (0-0.59) 11/21/24 20:19 Sodium 136 mmol/L (136-145) 11/21/24 20:19 Potassium 4.4 mmol/L (3.5-5.1) 11/21/24 20:19 Chloride 100 mmol/L (98-107) 11/21/24 20:19 Carbon Dioxide 25 mmol/L (22-29) 11/21/24 20:19 Anion Gap 15.4 (5-19) 11/21/24 20:19 BUN 11 mg/dL (6-20) 11/21/24 20:19 Creatinine 0.7 mg/dL (0.5-0.9) 11/21/24 20:19 GFR Calculation 104.6 mL/min (90-130) 11/21/24 20:19 Glucose 85 mg/dL (65-115) 11/21/24 20:19 Calculated Osmolality 281 mOsm/kg (285-295) L 11/21/24 20:19 Calcium 9.7 mg/dL (8.5-10.5) 11/21/24 20:19 Total Bilirubin 0.2 mg/dL (0.15-1.2) 11/21/24 20:19 AST 19 U/L (0-32) 11/21/24 20:19 ALT 30 U/L (0-33) 11/21/24 20:19 Alkaline Phosphatase 83 U/L (35-105) 11/21/24 20:19 Total Protein 8.6 g/dL (6.6-8.7) 11/21/24 20:19 Albumin 4.1 g/dL (3.5-5.2) 11/21/24 20:19 Globulin 4.5 g/dL (1.3-4.6) 11/21/24 20:19 All radiology interpretation(s) finalized by discharge Discharge Plan Discharge Patient Disposition: Home Clinical Impression: Non-cardiac chest pain Condition: Stable Prescriptions: No Action ferrous fumarate 324 mg (106 mg iron) tablet 324 mg PO DAILY meloxicam 15 mg tablet 15 mg PO DAILY Qty: 30 2RF albuterol sulfate 90 mcg/actuation HFA aerosol inhaler 2 puff inhalation Q6H PRN (Reason: Pain) acetaminophen [Tylenol] 325 mg Tablet 325 mg PO QID PRN (Reason: Pain) desogestrel-ethinyl estradiol [Isibloom] 0.15-0.03 mg tablet 1 tab PO QAM Discharge Orders: Discharge ED (Routine); Ordered 11/21/24 Ordered By: Yolanda Baeza Referrals: Brett Elizondo MD [Primary Care Provider, Family Practice] Discharge Diet: Usual diet Discharge Activity: Increase activity as tolerated Patient Instructions: Noncardiac Chest Pain (ED), Opioid Safety, Pain Management Activity Restrictions/Additional Instructions: Thank you for choosing [facility] for your healthcare needs today. You have been screened and evaluated and felt safe for discharge. Health conditions do change or evolve sometimes and as such it is important that you follow up with your Primary Doctor to be re checked, 3-5 days is a general good time frame for follow up. You are always welcome to return to the ED for re assessment if your symptoms are worsening or you have new concerns Print Language: Khmer Coding Level of Care Code ED Citizen Participation Specialist for Buzz Mcneill
[2024-11-21 21:45] VITALS: BP 128/75; PULSE 92; RESP 18; O2SAT 95
== END 2024-11-21 21:46 | disposition home or self-care (01) ==
PROVIDERS: Emergency Provider Emergency Medicine; PCP Family Medicine
DX: R07.89 Other chest pain (principal); R06.02 Shortness of breath
CPT/HCPCS: 36415; 71045; 80053; 85025; 85378; 85610; 85730; 93005; 99285

== ENCOUNTER 2025-06-16 12:25 | Emergency (ER) | payer OTHER, SELFPAY ==
[2025-06-16 12:25] VITALS: BP 139/88; PULSE 93; RESP 18; TEMP 36.6; O2SAT 99
--- NOTE | 2025-06-16 12:31 | ECG_ITS ---
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 Measurements Intervals [place] Rate: 98 P: 27 NH: 127 QRS: 35 QRSD: 83 T: -2 QT: 319 QTc: 408 Interpretive Statements SINUS RHYTHM Compared to ECG 11/21/2024 15:22:32 Sinus arrhythmia no longer present Short [place] interval no longer present Electronically Signed On 06-17-2025 21:28:55 SECURITIES TELLER by Lorena Garcia M.D. [id number]
--- NOTE | 2025-06-16 12:39 | W.ED.CHESTPA ---
HPI - Chest Pain General: Chief Complaint: Chest Pain Stated Complaint: dizzy, clammy, high hr, 18 weeks preg Time Seen by Provider: 06/16/25 12:36 Source: patient Mode of arrival: ambulatory Limitations: no limitations History of Present Illness: 24-year-old female who is currently 18 weeks state over the last 2 to 3 days she has been having some high heart rates she states has been having some sweating spells along with some congestion as well. Had some mild chest pain she denies any shortness of breath. Denies any abdominal pain or vaginal bleeding or complaints at this time Related Data Home Medications ?Medication ?Instructions ?Recorded ?Confirmed albuterol sulfate 90 mcg/actuation 2 puff inhalation Q6H PRN Pain 02/14/22 06/16/25 aerosol inhaler acetaminophen 325 mg tablet 325 mg PO QID PRN Pain 01/05/23 06/16/25 (Tylenol) fluticasone propionate 50 2 spray intranasal DAILY PRN 06/16/25 06/16/25 mcg/actuation nasal allergies spray,suspension (Flonase Allergy Relief) vit no.95-ferrous 1 tab PO DAILY 06/16/25 06/16/25 fumarate 28 mg-folic acid 800 mcg tablet () Allergies Allergy/AdvReac Type Severity Reaction Status Date / Time tramadol Allergy ADR-Headach Verified 06/28/24 13:05 e [facility] ED PFSH: Medical History (Updated 06/16/25 @ 13:58 by Mahnaz Dunne MD) Patella-femoral syndrome Loose body in knee Tear meniscus knee No pertinent past medical history neghx: htn,dm,thyroid,dvt/pe PCP: Dr. Elizondo Surgical History Hx of wisdom tooth extraction (~2018) History of tonsillectomy as a child History of placement of ear tubes x2 as a child Hx of appendectomy (~10/2020) Family History Grandmother Diabetes Paternal Grandfather Diabetes Paternal Mother Hypertension Denies family history of Colon cancer Ovarian cancer Heart disease Hypercholesteremia Breast cancer Uterine cancer Thyroid disease Stroke Social History Smoking and tobacco/nicotine status: never used tobacco/nicotine Alcohol intake: never Physical Exam Const: COMMON NORMALS: no acute distress, patient oriented x3 and healthy appearing HENMT: COMMON NORMALS: normocephalic and atraumatic HEAD & SCALP: normocephalic and atraumatic Neck/C-Spine: COMMON NORMALS: full ROM and supple Chest: COMMONS NORMALS: normal inspection of the chest and normal palpation of entire chest wall Resp: COMMON NORMALS: normal respiratory effort, No retractions, No use of accessory muscles and clear to auscultation bilaterally AUSCULTATION: clear to auscultation bilaterally Cardio: COMMON NORMALS: regular rate, regular rhythm and No murmurs present (Cardio) RATE: regular rate RHYTHM: regular rhythm GI: COMMON NORMALS: Normal to inspection, nondistended, normoactive bowel sounds present, Soft to palpation, non-tender and no masses PALPATION: Yes Soft to palpation Extremity: COMMON NORMALS: normal to inspection and full ROM Neuro: COMMON NORMALS: patient oriented x3, moves all extremities and no focal motor deficits Psych: COMMON NORMALS: mental status grossly normal, Normal thought process present and cooperative THOUGHT PROCESS: Normal thought process present Skin: COMMON NORMALS: no rashes or lesions noted and no wounds GENERAL SKIN EXAM: no rashes or lesions noted Course Vital Signs: Vital signs: Vital Signs Temperature 97.9 F 06/16/25 12:25 Pulse Rate 101 H 06/16/25 13:43 Respiratory Rate 18 06/16/25 13:43 Blood Pressure 138/79 06/16/25 13:08 Pulse Oximetry 99 06/16/25 13:43 Oxygen Delivery Me thod Room Air 06/16/25 12:25 MDM - Chest Pain Medical Decision Making 24-year-old female presents here with palpitations along with congestion over the last 2 to 3 days. Patient's been well-appearing here EKG showed normal sinus rhythm she has had no tachycardia here blood work shows no significant abnormalities heart tones were normal. She is no shortness of breath. No signs of pulmonary emboli. She felt much improved after IV fluids she is stable for discharge she has follow-up with her OB Dr. Proctor tomorrow follow-up as scheduled return if worsening. EKG interpreted by me at 1231 normal sinus rhythm heart rate [address] elevation QRS 83 QTc 374 Medical Records I reviewed the patient's medical records. Lab Data I reviewed the patient's lab results. 06/16/25 12:50 06/16/25 12:50 Laboratory Results WBC 12.44 10^3/uL (3.29-11.43) H 06/16/25 12:50 RBC 5.03 10^6/uL (3.85-5.65) 06/16/25 12:50 Hgb 13.20 g/dL (11.27-16.99) 06/16/25 12:50 Hct 41.5 % (36-47) 06/16/25 12:50 MCV 82.5 fl (85-98) L 06/16/25 12:50 MCH 26.2 pg (27-33) L 06/16/25 12:50 MCHC 31.8 g/dL (30-55) 06/16/25 12:50 RDW 14.8 % (12.1-15.1) 06/16/25 12:50 Plt Count 254 10^3/cmm (157-399) 06/16/25 12:50 MPV 11.3 fL (7.4-10.4) H 06/16/25 12:50 Neut % (Auto) 75.4 % 06/16/25 12:50 Lymph % (Auto) 14.9 % 06/16/25 12:50 Caroline % (Auto) 6.7 % 06/16/25 12:50 Eos % (Auto) 2.2 % 06/16/25 12:50 Baso % (Auto) 0.3 % 06/16/25 12:50 Neut # (Auto) 9.39 10^3/uL (1.8-7.7) H 06/16/25 12:50 Lymph # (Auto) 1.9 10^3/uL (0.8-4.8) 06/16/25 12:50 Caroline # (Auto) 0.8 10^3/uL (0.2-0.9) 06/16/25 12:50 Eos # (Auto) 0.3 10^3/uL (0.0-0.8) 06/16/25 12:50 Baso # (Auto) 0.0 10^3/uL (0.0-0.1) 06/16/25 12:50 Nucleated RBC % (auto) 0 % 06/16/25 12:50 Nucleated RBCs # 0.0 /100WBC 06/16/25 12:50 Sodium 135 mmol/L (136-145) L 06/16/25 12:50 Potassium 4.2 mmol/L (3.5-5.1) 06/16/25 12:50 Chloride 101 mmol/L (98-107) 06/16/25 12:50 Carbon Dioxide 23 mmol/L (22-29) 06/16/25 12:50 Anion Gap 15.2 (5-19) 06/16/25 12:50 BUN 11 mg/dL (6-20) 06/16/25 12:50 Creatinine 0.6 mg/dL (0.5-0.9) 06/16/25 12:50 GFR Calculation 125.0 mL/min (90-130) 06/16/25 12:50 Glucose 84 mg/dL (65-115) 06/16/25 12:50 Calculated Osmolality 279 mOsm/kg (285-295) L 06/16/25 12:50 Calcium 9.9 mg/dL (8.5-10.5) 06/16/25 12:50 Total Bilirubin 0.2 mg/dL (0.15-1.2) 06/16/25 12:50 AST 19 U/L (0-32) 06/16/25 12:50 ALT 33 U/L (0-33) 06/16/25 12:50 Alkaline Phosphatase 75 U/L (35-105) 06/16/25 12:50 Total Protein 7.5 g/dL (6.6-8.7) 06/16/25 12:50 Albumin 4.0 g/dL (3.5-5.2) 06/16/25 12:50 Globulin 3.5 g/dL (1.3-4.6) 06/16/25 12:50 TSH 4.60 uIU/mL (0.27-4.20) H 06/16/25 12:50 Influenza A (PCR) Negative (Negative) 06/16/25 12:57 Influenza Type B (PCR) Negative (Negative) 06/16/25 12:57 RSV (PCR) Negative (Negative) 06/16/25 12:57 SARS-CoV-2 (PCR) Negative (Negative) 06/16/25 12:57 No radiology studies performed this visit Discharge Plan Discharge Patient Disposition: Home Clinical Impression: Palpitations, Condition: Stable Prescriptions: No Action albuterol sulfate 90 mcg/actuation HFA aerosol inhaler 2 puff inhalation Q6H PRN (Reason: Pain) acetaminophen [Tylenol] 325 mg Tablet 325 mg PO QID PRN (Reason: Pain) fluticasone propionate [Flonase Allergy Relief] 50 mcg/actuation [place],Suspension 2 spray INTRANASAL DAILY PRN (Reason: allergies) Rx Instructions: administer into each nostril PNV no.95-ferrous fumarate-FA [] 28 mg iron- 800 mcg Tablet 1 tab PO DAILY Discharge Orders: Discharge ED (Routine); Ordered 06/16/25 Ordered By: Mahnaz Dunne Referrals: Brett Elizondo MD [Primary Care Provider, Family Practice] - 4-7 days Discharge Diet: Advance as tolerated Discharge Activity: Resume usual activity Patient Instructions: Heart Palpitations (ED) Print Language: Mal[place]ian Coding Level of Care Code ED Certified Retinal Angiographer for Chg Fwd Heart Score HEART Score Components History: Slightly Suspicous EKG: Normal Age: Less than 45 yrs Risk Factors: No Risk Factors Known Troponin: Baseline Trop <16 ng/L HEART Score RESULT HEART Score: 0
[2025-06-16 13:00] LABS: Hematocrit 41.5 % (36-47); Hemoglobin 13.20 g/dL (11.27-16.99); Mean Corpuscular HGB Conc 31.8 g/dL (30-55); Mean Corpuscular Hemoglobin 26.2 pg (27-33); Mean Corpuscular Volume 82.5 fl (85-98); Nucleated Red Blood Cells % 0 %; Platelet Count 254 10^3/cmm (157-399); Red Blood Count 5.03 10^6/uL (3.85-5.65); White Blood Count 12.44 10^3/uL (3.29-11.43)
[2025-06-16 13:08] VITALS: BP 138/79; PULSE 89; RESP 16; O2SAT 95
[2025-06-16 13:37] LABS: Alanine Aminotransferase 33 U/L (0-33); Albumin Level 4.0 g/dL (3.5-5.2); Alkaline Phosphatase 75 U/L (35-105); Anion Gap 15.2 (5-19); Aspartate Amino Transferase 19 U/L (0-32); Blood Urea Nitrogen 11 mg/dL (6-20); Calcium 9.9 mg/dL (8.5-10.5); Carbon Dioxide 23 mmol/L (22-29); Chloride 101 mmol/L (98-107); Globulin 3.5 g/dL (1.3-4.6); Glucose 84 mg/dL (65-115); Osmolality Calculated 279 mOsm/kg (285-295); Potassium 4.2 mmol/L (3.5-5.1); Sodium 135 mmol/L (136-145); Thyroid Stimulating Hormone 4.60 uIU/mL (0.27-4.20); Total Protein 7.5 g/dL (6.6-8.7)
[2025-06-16 13:43] VITALS: PULSE 101; RESP 18; O2SAT 99
[2025-06-16 14:09] LABS: Respiratory Syncytial Virus Ce NEGATIVE (Negative); SARS-CoV-2 PCR NEGATIVE (Negative)
== END 2025-06-16 14:00 | disposition home or self-care (01) ==
PROVIDERS: Emergency Provider Emergency Medicine; PCP Family Medicine
DX: O26.892 Other specified pregnancy related conditions, second trimester (principal); Z3A.18 18 weeks gestation of pregnancy; R00.2 Palpitations; Z11.52 Encounter for screening for COVID-19
CPT/HCPCS: 36415; 80053; 84443; 85025; 87637; 93005; 99284; J7030

== ENCOUNTER → 2025-06-19 17:53 | Outpatient (BNVA) | payer OTHER, SELFPAY | PROVIDERS: PCP Family Medicine; Visit Provider Registered Nurse Neonatal Intensive Care | DX: R10.A2 Flank pain, left side (principal); R39.9 Unspecified symptoms and signs involving the genitourinary system | CPT/HCPCS: 81000; 87086 ==